=== PATIENT | female | born 1945 | race Caucasian/White ===

== ENCOUNTER 2020-03-11 13:14 | Inpatient (IN) | payer MEDICARE, SELFPAY ==
--- NOTE | ~2020-03-11 | CT_ITS ---
EXAMINATION: CT brain wo con DATE: 03/11/2020 14:27 INDICATION: Headache TECHNIQUE: Computed tomography (CT) of the head was performed without intravenous contrast. The dose- length product was 605.33 mGy-cm. The mA was adjusted according to patient size. Iterative reconstruc tion technique was employed. COMPARISON: CT dated 12/13/2018 FINDINGS: No acute intracranial hemorrhage, infarction, mass or mass effect. No ventriculomegaly or m idline shift. Basilar cisterns are patent. Paranasal sinuses and mastoids are pneumatized. There are scattered mild periventricular and subcortical white matter changes, most likely related to small ves sherrill ischemic disease (microangiopathy). IMPRESSION: 1. No acute intracranial abnormality. Reviewed, dictated and finalized at location A.
--- NOTE | ~2020-03-11 | CT_ITS ---
EXAMINATION: CT abdomen pelvis w con INDICATION: Nausea, poor appetite, abdominal pain TECHNIQUE: Computed tomographic images of the abdomen and pelvis were obtained after the administrati on of 100 cc of Omnipaque 350 intravenous contrast. The dose-length product (DLP) was 470.19 mGy-cm. Automated exposure control and iterative reconstruction technique were employed. COMPARISON: 12/13/2018 FINDINGS: The lung bases are clear. The heart size is normal. There is a small sliding hiatal hernia. An asymmetry is seen in the partially imaged left breast. The liver is diffusely low in attenuation when compared with the spleen, consistent with hepatic steatosis. An unchanged 5 mm cyst is noted in the right hepatic lobe. The spleen, pancreas, gallbladder, and adrenal glands are normal. Hypoattenua ting lesions in the kidneys, measuring up to 3 mm on the right, are too small to characterize but lik yesenia represent cysts. No pathologically enlarged abdominal or pelvic lymph nodes are identified. There is no free intraperitoneal gas or evidence of bowel obstruction. The appendix is normal. There is se felicia lumbar spondylosis. A fat-containing umbilical hernia is noted. There is lumbar levocurvature. IMPRESSION: 1. No CT correlate for the patient's symptoms. 2. Left breast asymmetry. Recommend correlation with mammogram history. If none has been recently per formed, would recommend follow-up with screening mammogram. 3. Diffuse hepatic steatosis. Reviewed, dictated and finalized at location A. IMPRESSION: 1. No CT correlate for the patient's symptoms. 2. Left breast asymmetry. Recommend correlation with mammogram history. If none has been recently performed, would recommend follow-up with screening mammogra m. 3. Diffuse hepatic steatosis.
[2020-03-11 13:32] VITALS: BP 136/68; PULSE 77; RESP 18; TEMP 36.8; O2SAT 97
--- NOTE | 2020-03-11 14:15 | ECG_ITS ---
Measurements Intervals [place] Rate: 68 P: 48 CT: 188 QRS: -22 QRSD: 108 T: 36 QT: 398 QTc: 424 Interpretive Statements SINUS RHYTHM DELAYED PRECORDIAL R/S TRANSITION VOLTAGE CRITERIA FOR LVH BASELINE ARTIFACT- I, II, III, AVR, AVL, AVF BORDERLINE ECG Electronically Signed On 03-11-2020 17:04:38 CDT by Rj Ng D.O.
--- NOTE | 2020-03-11 14:18 | ED.HA ---
HPI - Headache General Chief Complaint: Headache Stated Complaint: weakness, headache, sick to stomach Time Seen by Provider: 03/11/20 14:14 Source: patient Mode of arrival: ambulatory Limitations: no limitations History of Present Illness HPI Narrative: Patient is a 74-year-old female complaining of a headache accompanied by nausea dizziness and loss of appetite x3 weeks. Patient states her headaches generalize 8 out of 10 aching nonradiating. Patient denies any speech or visual disturbance focal weakness or focal numbness, or unsteady gait. Patient denies any neck stiffness or fever. Patient states she has seen a neurologist for it and has an MRI of her head ordered next week. MD elicited complaint: headache Related Data Home Medications Medication Instructions Recorded Confirmed [facility] 05/15/19 alendronate mg PO 05/15/19 aspirin 05/15/19 diclofenac sodium PO 05/15/19 diphenhydramine-acetaminophen 2 tablet PO HS 05/15/19 05/15/19 [Tylenol PM Extra Strength] esomeprazole magnesium mg 05/15/19 galantamine mg PO 05/15/19 levothyroxine 05/15/19 magnesium 200 mg PO DAILY 05/15/19 05/15/19 [id number] acid-lutein [Centrum 1 tablet PO DAILY 05/15/19 05/15/19 Silver] alprazolam 03/11/20 03/11/20 diphenhydramine-acetaminophen 1 tablet PO HS PRN 03/11/20 [Tylenol PM Extra Strength] docusate sodium 100 mg PO DAILY 03/11/20 03/11/20 fluocinonide 1 applic TOPICAL BID 03/11/20 03/11/20 ibuprofen 200 mg PO Q6H PRN 03/11/20 03/11/20 ketoconazole TOPICAL 03/11/20 meclizine 25 mg PO TID 03/11/20 pseudoephedrine HCl [Sudafed] 30 mg PO Q4-6H PRN 03/11/20 03/11/20 Allergies Allergy/AdvReac Type Severity Reaction Status Date / Time cefuroxime Allergy Intermediate Nausea and Verified 03/11/20 13:37 Vomiting Lobster Allergy Intermediate Nausea and Uncoded 03/11/20 13:37 Vomiting Review of Systems Review of Systems: All systems reviewed & are unremarkable except as noted in HPI and below Constitutional: Constitutional: Denies body ache(s), Denies chills, Denies excessive sweating, Denies fatigue, Denies fever(s), Denies lethargy and Denies weight loss Eyes: Eyes: Denies blurry vision, Denies change in vision and Denies loss of vision ENT: Denies ear discharge, Denies headache(s), Denies lip swelling, Denies epistaxis, Denies nasal congestion, Denies neck pain, Denies throat swelling and Denies tongue swelling Cardiovascular: Cardiovascular: Denies chest pain, Denies chest pain at rest, Denies chest pain with activity, Denies diaphoresis, Denies rapid heart rate, Denies edema, Denies irregular heart rhythm, Denies lightheadedness, Denies palpitations, Denies dyspnea and Denies dyspnea on exertion Respiratory: Respiratory: Denies chest congestion, Denies cough, Denies hemoptysis, Denies dyspnea and Denies dyspnea on exertion Gastrointestinal: Gastrointestinal: Denies abdominal pain, Denies melena, Denies hematochezia, Denies diarrhea, Denies vomiting and Denies hematemesis Musculoskeletal: Musculoskeletal: Denies abnormal gait, Denies deformity, Denies joint swelling, Denies limited range of motion, Denies neck pain and Denies numbness Neurologic: Denies Abnormal speech present, Denies abnormal gait, Denies confusion, Denies dizziness, Denies headache(s), Denies focal weakness, Denies loss of vision, Denies numbness, Denies Other visual disturbances, Denies Sensory deficit (Neuro) and Denies weakness Psychiatric: Psychiatric: Denies confusion, Denies depression, Denies auditory hallucinations, Denies homicidal ideation and Denies suicidal ideation Endocrine: Endocrine: Denies cold intolerance, Denies excessive sweating, Denies fatigue, Denies heat intolerance and Denies palpitations Hematologic/Lymphatic: Hematologic/Lymphatic: Denies easy bleeding and Denies easy bruising Allergic/Immunologic: Allergic/Immunologic: Denies lip swelling, Denies throat swelling and Denies tongue swelling PMF Past Medica
--- NOTE | 2020-03-11 14:26 | PC.NURSE ---
Pt taken to [facility]
[2020-03-11] MEDS: diphenhydrAMINE HCl INJ 50 MG/ML VIAL 25 MG IV PUSH (14:39)
[2020-03-11] MEDS: METOCLOPRAMIDE HCL INJ 10 MG/2 ML VIAL IV PUSH (14:40)
[2020-03-11 14:46] LABS: Basophils Percent Auto 0.3 % (0.2-1.2); Eosinophils Percent Auto 0.1 % (0-4.4); Hematocrit 36.3 % (37.0-47.0); Hemoglobin 13.1 g/dL (12.0-15.0); Immature Granulocyte Absolute 0.05 K/mm3 (0.00-0.031); Immature Granulocyte Percent A 0.5 % (0-0.5); Lymphocytes Absolute Auto 0.78 K/mm3 (0.9-3.2); Lymphocytes Percent Auto 8.2 % (18.3-44.2); Mean Corpuscular HGB Conc 36.1 g/dl (32-36); Mean Corpuscular Hemoglobin 31.6 pg (26-34); Mean Corpuscular Volume 87.7 fl (80-100); Mean Platelet Volume 8.8 fl (7.4-10.4); Monocytes Absolute Auto 0.7 K/mm3 (0.1-0.6); Monocytes Percent Auto 7.1 % (2.6-8.5); Neutrophils Percent Auto 83.8 % (45.5-73.1); Platelet Count Result 203 k/mm3 (150-375); Red Blood Count 4.14 M/mm3 (4.2-5.4); White Blood Count 9.5 K/mm3 (4.5-10.0)
[2020-03-11] MEDS: SODIUM CHLORIDE 0.9% IV 1,000 ML 999 ML IV CONT (14:51)
[2020-03-11 14:58] LABS: Alanine Aminotransferase 23 U/L (4-35); Albumin Level 4.5 g/dL (3.5-5.1); Alkaline Phosphatase 58 U/L (38-126); Anion Gap 10 mmol/L (8-16); Aspartate Amino Transferase 27 U/L (14-36); Bilirubin,Total 0.4 mg/dL (0.2-1.3); Blood Urea Nitrogen 11 mg/dL (7-17); Calcium 8.8 mg/dL (8.4-10.2); Carbon Dioxide 30 mmol/L (22-30); Chloride 81 mmol/L (98-107); Estimated CRCL calculation 65 ml/min; Estimated Glomerular Filt Rate > 60; Glucose 135 mg/dL (65-105); Potassium 3.7 mmol/L (3.4-5.0); Sodium 121 mmol/L (137-145)
[2020-03-11 15:10] VITALS: BP 126/87; PULSE 78; RESP 18; O2SAT 100
[2020-03-11 15:22] VITALS: BP 130/72; BP 133/62; PULSE 82; PULSE 84
[2020-03-11 15:23] VITALS: BP 151/77; PULSE 88
[2020-03-11] MEDS: HYDROcodone/acetaminophen (*CRX) 5-325 MG TABLET 1 TAB PO (17:12)
[2020-03-11] MEDS: KETOROLAC 30 MG/ML VIAL (*BKC) IV PUSH (17:13)
--- NOTE | 2020-03-11 18:22 | ADMGEN ---
This patient, Naya Beal, was admitted to [facility] Surg Room 325-01. Patient/family oriented to hospital policies and general routines including ID bracelet, bed and alarms, visiting hours, pain management, procedures, bathroom and other care routines, personal items, smoking policy, room service/diet, and visiting hours. Valuables list has been completed. Information on how to activate the Rapid Response Team has been discussed. Patient/Family are encouraged to report perceived risks to care and to ask questions if they do not understand what they are told or what they should do.
[2020-03-11 18:28] VITALS: BMI 25.1
[2020-03-11 19:07] VITALS: BP 157/71; PULSE 89; RESP 18; TEMP 36.7; O2SAT 98
[2020-03-11] MEDS: SODIUM CHLORIDE 0.9% IV 1,000 ML 90 ML IV CONT (20:45)
[2020-03-11 22:00] VITALS: BP 150/70; PULSE 76; RESP 16; TEMP 36.7; O2SAT 98
--- NOTE | 2020-03-12 00:06 | PM.IMHP ---
H&P: HPI History of Present Illness Date/Time: 03/12/20 00:06 Chief complaint: HYPONATREMIA/HEADACHE Narrative: Naya Beal is a 74 year old female who has been having loss of appetite and dizziness and nausea for the last 3 weeks. The patient denies any fever chills. The patient has been having an unsteady gait and dizziness. She has seen the neurologist and is supposed to have an MRI this next week. The patient is complaining of an 8/10 headache. She denies any visual disturbances or any speech difficulty or any focal weakness or numbness. The patient's sodium was 121 today and her last known sodium was 133. Renal function is within normal limits. Patient is not on any diuretics. And she denies drinking a lot of water. She said her oral intake has been very poor. The patient was started on normal saline. The patient does take any SSRI on a routine basis.Which was read as no acute intracranial abnormality. Date of service 03/12/20 Review of Systems Review of Systems: All systems reviewed & are unremarkable except as noted in HPI and below Constitutional: Constitutional: Reports as per HPI and Reports no additional constitutional complaints Eyes: Eyes: Reports as per HPI and Reports no additional eye complaints ENT: Reports system reviewed and no additional complaints, except as documented and Reports Normal hearing present Cardiovascular: Cardiovascular: Reports no additional cardiovascular complaints Respiratory: Respiratory: Reports no additional respiratory complaints and Reports no additional respiratory complaints Gastrointestinal: Gastrointestinal: Reports as per HPI and Reports no additional gastrointestinal complaints Musculoskeletal: Musculoskeletal: Reports no additional musculoskeletal complaints Integumentary/Breasts: Skin/Breast: Reports system reviewed and no additional complaints, except as docu and Reports as per HPI Neurologic: Reports system reviewed and no additional complaints, except as documented, Reports as per HPI and Reports Normal hearing present Psychiatric: Psychiatric: Reports no additional psychiatric complaints and Reports as per HPI Endocrine: Endocrine: Reports no additional endocrine complaints Hematologic/Lymphatic: Hematologic/Lymphatic: Reports no additional hematologic/lymphatic complaints Allergic/Immunologic: Allergic/Immunologic: Reports no additional allergic/immunologic complaints [facility] Past Medical History Medical History (Updated 03/12/20 @ 00:11 by Mita Robison NP) Anemia Angina at rest Anxiety Arthritis Bronchitis Deficient knowledge of caesarean delivery Fibroids GERD (gastroesophageal reflux disease) Hypothyroidism Osteoporosis Seasonal allergies Sinus problem Surgical History Surgical History (Updated 09/27/20 @ 00:12 by Mita Robison NP) H/O dilation and curettage H/O: hysterectomy History of bladder surgery History of section, classical X2 Hx of tonsillectomy Family History Family History Mother Cancer Father Polio Heart disease Social History Social History (Updated 03/12/20 @ 00:14 by Mita Robison NP) Social History: The patient stated that she never smoked. She does not drink use marijuana or illicit drugs. She lives with her who is a durable power of criminal attorney for healthcare. The patient is a full code. She has 2 children. 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 One of her children as in an accident. Smoking status: Never smoker Second hand tobacco smoke exposure: No Alcohol intake: never Substance use: never Gender identity (if verbalized by the patient): Female Sexual Orientation (if Verbalized by the Patient): Straight or Heterosexual Spiritual care concerns: No Meds Home Medications and Allergies Home Medications Medication Instructions Recorded Confirmed Type alendronate 70 mg
[2020-03-12] MEDS: ONDANSETRON INJ 4 MG/2 ML VIAL IV PUSH (04:52)
[2020-03-12 05:30] VITALS: BP 156/77; PULSE 78; RESP 20; TEMP 36.6; O2SAT 96
[2020-03-12] MEDS: SODIUM CHLORIDE 0.9% IV 1,000 ML 90 ML IV CONT (06:44)
[2020-03-12] MEDS: LEVOTHYROXINE SODIUM 75 MCG TABLET PO (06:45)
[2020-03-12 06:58] LABS: Basophils Percent Auto 0.2 % (0.2-1.2); Eosinophils Percent Auto 0.1 % (0-4.4); Hematocrit 35.5 % (37.0-47.0); Hemoglobin 12.7 g/dL (12.0-15.0); Immature Granulocyte Absolute 0.03 K/mm3 (0.00-0.031); Immature Granulocyte Percent A 0.3 % (0-0.5); Lymphocytes Absolute Auto 1.12 K/mm3 (0.9-3.2); Lymphocytes Percent Auto 11.2 % (18.3-44.2); Mean Corpuscular HGB Conc 35.8 g/dl (32-36); Mean Corpuscular Hemoglobin 30.9 pg (26-34); Mean Corpuscular Volume 86.4 fl (80-100); Mean Platelet Volume 8.4 fl (7.4-10.4); Monocytes Absolute Auto 0.7 K/mm3 (0.1-0.6); Monocytes Percent Auto 6.7 % (2.6-8.5); Neutrophils Absolute Auto 8.2 K/mm3 (1.3-6.7); Neutrophils Percent Auto 81.5 % (45.5-73.1); Platelet Count Result 201 k/mm3 (150-375); Red Blood Count 4.11 M/mm3 (4.2-5.4); Red Cell Distribution Width 11.9 % (11.5-14.5)
[2020-03-12 07:12] LABS: Alanine Aminotransferase 22 U/L (4-35); Albumin Level 4.3 g/dL (3.5-5.1); Alkaline Phosphatase 57 U/L (38-126); Anion Gap 9 mmol/L (8-16); Aspartate Amino Transferase 27 U/L (14-36); Bilirubin,Total 0.4 mg/dL (0.2-1.3); Blood Urea Nitrogen 6 mg/dL (7-17); Calcium 7.9 mg/dL (8.4-10.2); Carbon Dioxide 25 mmol/L (22-30); Chloride 89 mmol/L (98-107); Estimated CRCL calculation 77 ml/min; Estimated Glomerular Filt Rate > 60; Glucose 113 mg/dL (65-105); Magnesium 1.9 mg/dL (1.6-2.3); Potassium 3.5 mmol/L (3.4-5.0); Sodium 123 mmol/L (137-145)
[2020-03-12 08:00] VITALS: PULSE 78; RESP 20; O2SAT 96
[2020-03-12] MEDS: PANTOPRAZOLE SODIUM IV 40 MG VIAL IV PUSH ×2 (08:08→20:30)
[2020-03-12] MEDS: MULTIVITAMINS /C LUTEIN (CENTRUM SILVER) TABLET *BKC 1 TAB PO (08:08)
[2020-03-12] MEDS: SERTRALINE HCL 50 MG TABLET PO (08:08)
[2020-03-12] MEDS: ALPRAZolam (*CRX) 0.5 MG TABLET PO ×3 (08:14→17:33)
[2020-03-12] MEDS: KETOCONAZOLE 2% SHAMPOO 120 ML BOTTLE 1 APPLIC TOPICAL (08:18)
--- NOTE | 2020-03-12 10:20 | PM.IMPN ---
Progress Note: A&P Assessment and Plan (1) Acute hyponatremia: Code(s): E87.1 - Hypo-osmolality and hyponatremia Status: Acute Assessment and Plan: Sodium 121 at presentation and is remaining stable with IV fluids. Most likely etiology is dehydration as patient reports recent nausea and vomiting with poor PO intake. No recent diuretic use. No excess alcohol/beer intake. Denies excess water intake. Urine sodium is 144. She appears euvolemic on exam. Continue gentle IV fluids Hold SSRI Monitor sodium q4h. Nephrology has been consulted and recommendations are appreciated (2) Anxiety: Code(s): F41.9 - Anxiety disorder, unspecified Status: Acute Assessment and Plan: Mood is stable at this time. Continue alprazolam Hold sertraline given hyponatremia (3) Hypothyroidism: Qualifiers: Hypothyroidism type: unspecified Qualified Code(s): E03.9 - Hypothyroidism, unspecified Code(s): E03.9 - Hypothyroidism, unspecified Status: Chronic Assessment and Plan: TSH is within normal limits. Continue levothyroxine. (4) Seasonal allergies: Code(s): J30.2 - Other seasonal allergic rhinitis Status: Chronic Assessment and Plan: Complains of sinus congestion, post-nasal drip, and chest congestion Begin claritin, fluticasone, and mucinex Sudafed has been held. Subjective Date/time seen: 03/12/20 10:20 Interval history: Date of service: 03/12/2020 Naya Beal is a 74 year old female with a history of hypothyroidism, anemia, and seasonal allergies who is seen in follow up for hyponatremia. She complains of sinus pressure and congestion today with associated post-nasal drip causing cough. She also has a headache in the frontal and temporal region which she believes is related to sinus pressure. She complains of feeling dizzy but no worse than how she has been feeling for some time. Denies lightheadedness, weakness, fatigue. No nausea or vomiting. Oral intake has been adequate and she is eating most of her meals. She denies abdominal pain. She had a BM this morning. No dysuria or hematuria. She denies feeling anxious. She has no additional concerns. She does display some confusion throughout the encounter and often repeats herself, but answers all questions appropriately. Review of Systems Review of Systems: Narrative: 12 systems reviewed with pertinent positives and negatives as per HPI. Exam Narrative: Exam Narrative: Ms. Beal is a well nourished 74 year old female who is lying supine in bed. She appears comfortable and is in NARD. HR 78, BP 156/77, RR 20, T 97.8, 96% on room air Neuro: awake, alert and oriented x4, speech clear, no focal neuro deficits noted, some short term memory deficits noted HEENMT: normocephalic, atraumatic, EOMI, sclerae anicteric, moist oral mucosa, tongue midline, nares patent Neck: supple, no lymphadenopathy Respiratory: clear to auscultation bilaterally, nonlabored breathing Cardio: regular rate, regular rhythm with S1-S2 Abdomen: nondistended, normoactive bowel sounds, soft, nontender to palpation, no rigidity or guarding Extremities: no edema, erythema, cyanosis, clubbing, or tenderness to palpation, DP pulses 2+ bilaterally Skin: no rashes or lesions, warm and dry Psych: appropriate mood and affect, judgement and insight fair Objective Data Vital Signs Vital Signs: Vital Signs - 24 hr 03/11/20 13:32 03/11/20 15:10 03/11/20 15:22 Temperature 98.3 F Pulse Rate 77 78 84 Respiratory Rate 18 18 Blood Pressure 136/68 126/87 130/72 Pulse Oximetry 97 100 03/11/20 15:23 03/11/20 19:07 03/11/20 22:00 Temperature 98.0 F 98.1 F Pulse Rate 88 89 76 Respiratory Rate 18 16 Blood Pressure 151/77 H 157/71 H 150/70 H Pulse Oximetry 98 98 03/12/20 05:30 Temperature 97.8 F Pulse Rate 78 Respiratory Rate 20 Blood Pressure 156/77 H Pulse Oximetry 96 Intake/Output
[2020-03-12] MEDS: LORATADINE 5 MG TABLET PO (11:32)
[2020-03-12] MEDS: ACETAMINOPHEN 325 MG TABLET 650 MG PO ×2 (11:35→21:12)
[2020-03-12 12:52] LABS: Sodium 121 mmol/L (137-145)
[2020-03-12 13:35] LABS: Sodium Urine Random 144 meq/L
[2020-03-12 14:00] VITALS: BP 135/70; PULSE 81; RESP 20; TEMP 36.8; O2SAT 92
[2020-03-12 16:20] VITALS: BP 148/69; PULSE 79; RESP 16; TEMP 36.7; O2SAT 99
[2020-03-12 18:22] LABS: Sodium 120 mmol/L (137-145)
[2020-03-12] MEDS: SODIUM CHLORIDE 0.9% IV 1,000 ML 100 ML IV CONT (18:41)
[2020-03-12 19:58] LABS: Sodium 122 mmol/L (137-145)
[2020-03-12] MEDS: FLUTICASONE PROPIONATE 0.05% NA SPR 16 GM BTL (*BKC) 1 SPRAY NASAL (20:28)
[2020-03-12] MEDS: guaiFENesin 12 HR 600 MG TABCR PO (20:28)
[2020-03-12 22:00] VITALS: BP 124/64; PULSE 76; RESP 20; TEMP 37; O2SAT 94
[2020-03-13 00:32] LABS: Sodium 124 mmol/L (137-145)
[2020-03-13] MEDS: SODIUM CHLORIDE 0.9% IV 1,000 ML 100 ML IV CONT ×2 (04:36→19:03)
[2020-03-13] MEDS: LEVOTHYROXINE SODIUM 75 MCG TABLET PO (05:36)
[2020-03-13 06:00] VITALS: BP 143/72; PULSE 75; RESP 18; TEMP 36.4; O2SAT 95
[2020-03-13 06:36] LABS: Hematocrit 35.8 % (37.0-47.0); Hemoglobin 12.5 g/dL (12.0-15.0); Mean Corpuscular HGB Conc 34.9 g/dl (32-36); Mean Corpuscular Hemoglobin 30.6 pg (26-34); Mean Corpuscular Volume 87.7 fl (80-100); Mean Platelet Volume 8.6 fl (7.4-10.4); Platelet Count Result 197 k/mm3 (150-375); Red Blood Count 4.08 M/mm3 (4.2-5.4); White Blood Count 8.3 K/mm3 (4.5-10.0)
[2020-03-13 06:55] LABS: Anion Gap 10 mmol/L (8-16); Blood Urea Nitrogen 3 mg/dL (7-17); Calcium 8.3 mg/dL (8.4-10.2); Carbon Dioxide 28 mmol/L (22-30); Chloride 90 mmol/L (98-107); Estimated CRCL calculation 77 ml/min; Estimated Glomerular Filt Rate > 60; Glucose 100 mg/dL (65-105); Potassium 3.2 mmol/L (3.4-5.0); Sodium 128 mmol/L (137-145)
[2020-03-13] MEDS: ALPRAZolam (*CRX) 0.5 MG TABLET PO ×2 (08:40→17:01)
[2020-03-13] MEDS: KETOCONAZOLE 2% SHAMPOO 120 ML BOTTLE 1 APPLIC TOPICAL (08:41)
[2020-03-13] MEDS: LORATADINE 5 MG TABLET PO (08:41)
[2020-03-13] MEDS: PANTOPRAZOLE SODIUM IV 40 MG VIAL IV PUSH ×2 (08:41→21:10)
[2020-03-13] MEDS: guaiFENesin 12 HR 600 MG TABCR PO ×2 (08:41→21:10)
[2020-03-13] MEDS: MULTIVITAMINS /C LUTEIN (CENTRUM SILVER) TABLET *BKC 1 TAB PO (08:41)
[2020-03-13] MEDS: FLUTICASONE PROPIONATE 0.05% NA SPR 16 GM BTL (*BKC) 1 SPRAY NASAL ×2 (08:41→21:09)
[2020-03-13] MEDS: POTASSIUM CHLORIDE 20 MEQ TABLET 40 MEQ PO (09:29)
[2020-03-13 10:31] LABS: Sodium 125 mmol/L (137-145)
[2020-03-13 14:00] VITALS: BP 135/78; PULSE 76; RESP 18; TEMP 36.9; O2SAT 99
[2020-03-13 14:20] LABS: Sodium 123 mmol/L (137-145)
--- NOTE | 2020-03-13 16:32 | PM.IMPN ---
Progress Note: A&P Assessment and Plan (1) Acute hyponatremia: Code(s): E87.1 - Hypo-osmolality and hyponatremia Status: Acute Assessment and Plan: Sodium 121 at presentation and is remaining stable with IV fluids. Most likely etiology is dehydration as patient reports recent nausea and vomiting with poor PO intake. No recent diuretic use. No excess alcohol/beer intake. Denies excess water intake. Urine sodium is 144. She appears euvolemic on exam. Continue gentle IV fluids as this appears to be slowly improving sodium levels Hold SSRI Continue to monitor sodium q4h. Nephrology has been consulted and recommendations are appreciated Hopeful discharge tomorrow if continued improvement. (2) Anxiety: Code(s): F41.9 - Anxiety disorder, unspecified Status: Acute Assessment and Plan: Mood is stable at this time. Continue alprazolam Hold sertraline given hyponatremia Her has been given permission to stay with her tonight to help keep her oriented and calm. (3) Hypothyroidism: Qualifiers: Hypothyroidism type: unspecified Qualified Code(s): E03.9 - Hypothyroidism, unspecified Code(s): E03.9 - Hypothyroidism, unspecified Status: Chronic Assessment and Plan: TSH is within normal limits. Continue levothyroxine. (4) Seasonal allergies: Code(s): J30.2 - Other seasonal allergic rhinitis Status: Chronic Assessment and Plan: Complains of sinus congestion, post-nasal drip, and chest congestion. Improved today. Continue claritin, fluticasone, and mucinex Sudafed has been held. (5) Chest pain: Qualifiers: Chest pain type: unspecified Qualified Code(s): R07.9 - Chest pain, unspecified Code(s): R07.9 - Chest pain, unspecified Status: Acute Assessment and Plan: On 03/12, she had an episode of midsternal chest discomfort lasting approximately 20 minutes which occurred while at rest. She had difficulty describing her symptoms but felt it was similar to a tightness that radiated towards the left anterior chest wall. She denied jaw pain, arm pain, back pain. No diaphoresis. No shortness of breath or palpitations. No GERD symptoms. She reports she has never had an episode similar to this before. She denies any cardiac history or history of angina. Upon further questioning, she feels quite anxious overall and believes that her anxiety may be contributing to her chest pain. Her pain is reproducible with palpation of chest wall. EKG was performed with no changes compared to initial; do not suspect ischemia or ACS. She denies any additional episodes of chest pain today. Administer anxiolytic and analgesics as needed Monitor for any additional symptoms Subjective Date/time seen: 03/13/20 16:32 Interval history: Date of service: 03/13/2020 Naya Beal is a 74 year old female with a history of hypothyroidism, anemia, and seasonal allergies who is seen in follow up for hyponatremia. She became confused last night and was getting up from bed and pulling out her IV. Her would like to stay with her tonight to help keep her oriented and calm. She is feeling well today and anxious for discharge. She has mild headache that has improved. No dizziness, lightheadedness, weakness, fatigue, body aches, cramps, nausea, vomiting, fevers, or chills. Review of Systems Review of Systems: Narrative: 12 systems reviewed with pertinent positives and negatives as per HPI. Exam Narrative: Exam Narrative: Ms. Beal is a well nourished 74 year old female who is lying supine in bed. She appears comfortable and is in NARD. HR 75, BP 143/72, RR 18, T 97.6, 95% on room air Neuro: awake, alert and oriented x4, speech clear, no focal neuro deficits noted, some short term memory deficits noted HEENMT: normocephalic, atraumatic, EOMI, sclerae anicteric, moist oral mucosa, tongue midline, nares paten
--- NOTE | 2020-03-13 16:46 | ECG_ITS ---
Measurements Intervals [place] Rate: 76 P: 37 [place]: 181 QRS: -23 QRSD: 104 T: 36 QT: 365 QTc: 412 Interpretive Statements SINUS RHYTHM VOLTAGE CRITERIA FOR LVH BORDERLINE R WAVE PROGRESSION, ANTERIOR LEADS BASELINE WANDER- I, II BORDERLINE ECG Electronically Signed On 03-13-2020 14:27:29 CDT by Rj Ng D.O.
[2020-03-13 18:40] LABS: Sodium 124 mmol/L (137-145)
[2020-03-13] MEDS: ACETAMINOPHEN 325 MG TABLET 650 MG PO (21:24)
[2020-03-13 22:00] VITALS: BP 140/70; PULSE 84; RESP 18; TEMP 36.9; O2SAT 94
[2020-03-13 23:25] LABS: Sodium 126 mmol/L (137-145)
[2020-03-14] MEDS: SODIUM CHLORIDE 0.9% IV 1,000 ML 100 ML IV CONT (02:43)
[2020-03-14 06:00] VITALS: BP 132/75; PULSE 70; RESP 18; TEMP 36.8; O2SAT 97
[2020-03-14] MEDS: LEVOTHYROXINE SODIUM 75 MCG TABLET PO (06:36)
[2020-03-14 06:38] LABS: Basophils Absolute Auto 0.1 K/mm3 (0.0-0.1); Basophils Percent Auto 0.8 % (0.2-1.2); Eosinophils Absolute Auto 0.1 K/mm3 (0-0.3); Eosinophils Percent Auto 0.9 % (0-4.4); Hematocrit 35.7 % (37.0-47.0); Hemoglobin 12.5 g/dL (12.0-15.0); Immature Granulocyte Absolute 0.05 K/mm3 (0.00-0.031); Immature Granulocyte Percent A 0.6 % (0-0.5); Lymphocytes Absolute Auto 2.02 K/mm3 (0.9-3.2); Lymphocytes Percent Auto 25.4 % (18.3-44.2); Mean Corpuscular Hemoglobin 30.6 pg (26-34); Mean Corpuscular Volume 87.3 fl (80-100); Mean Platelet Volume 8.6 fl (7.4-10.4); Monocytes Absolute Auto 0.8 K/mm3 (0.1-0.6); Monocytes Percent Auto 9.4 % (2.6-8.5); Neutrophils Percent Auto 62.9 % (45.5-73.1); Platelet Count Result 234 k/mm3 (150-375); Red Blood Count 4.09 M/mm3 (4.2-5.4)
[2020-03-14 06:54] LABS: Alanine Aminotransferase 27 U/L (4-35); Albumin Level 4.3 g/dL (3.5-5.1); Alkaline Phosphatase 57 U/L (38-126); Anion Gap 9 mmol/L (8-16); Aspartate Amino Transferase 30 U/L (14-36); Bilirubin,Total 0.5 mg/dL (0.2-1.3); Blood Urea Nitrogen 4 mg/dL (7-17); Calcium 8.5 mg/dL (8.4-10.2); Carbon Dioxide 25 mmol/L (22-30); Chloride 99 mmol/L (98-107); Estimated CRCL calculation 65 ml/min; Estimated Glomerular Filt Rate > 60; Glucose 102 mg/dL (65-105); Potassium 3.5 mmol/L (3.4-5.0); Sodium 133 mmol/L (137-145)
[2020-03-14] MEDS: FLUTICASONE PROPIONATE 0.05% NA SPR 16 GM BTL (*BKC) 1 SPRAY NASAL (08:21)
[2020-03-14] MEDS: guaiFENesin 12 HR 600 MG TABCR PO (08:21)
[2020-03-14] MEDS: LORATADINE 5 MG TABLET PO (08:21)
[2020-03-14] MEDS: ALPRAZolam (*CRX) 0.5 MG TABLET PO (08:21)
[2020-03-14] MEDS: MULTIVITAMINS /C LUTEIN (CENTRUM SILVER) TABLET *BKC 1 TAB PO (08:21)
[2020-03-14] MEDS: PANTOPRAZOLE SODIUM IV 40 MG VIAL IV PUSH (08:22)
[2020-03-14] MEDS: ACETAMINOPHEN 325 MG TABLET 650 MG PO (08:28)
--- NOTE | 2020-03-14 10:09 | PM.DS ---
DS: Admitting Diagnosis Admitting Diagnosis Admitting Diagnosis: HYPONATREMIA/HEADACHE DS: Discharge Diagnosis Discharge Diagnosis (1) Acute hyponatremia: Code(s): E87.1 - Hypo-osmolality and hyponatremia Status: Acute Assessment and Plan: Sodium 121 at presentation. Suspect acute hyponatremia is secondary to dehydration. Patient reported poor PO intake secondary to nausea and vomiting. She is not on diuretics. No excess alcohol/beer intake. No excess water intake/water intoxication. She remained asymptomatic. Sodium steadily improved with gentle IV normal saline and was 133 at time of discharge. SSRI resumed as hyponatremia was felt to be secondary to dehydration and not related to medication. She will need to repeat sodium in 1 week and follow up with PCP. We discussed adequate hydration. (2) Anxiety: Code(s): F41.9 - Anxiety disorder, unspecified Status: Acute Assessment and Plan: Sertraline was held initially but resumed as above. She did feel anxious about being hospitalized which worsened in the absence of her . He was given permission to stay with her overnight in order to keep her oriented and calm. Continue alprazolam and sertraline. (3) Hypothyroidism: Qualifiers: Hypothyroidism type: unspecified Qualified Code(s): E03.9 - Hypothyroidism, unspecified Code(s): E03.9 - Hypothyroidism, unspecified Status: Chronic Assessment and Plan: TSH is within normal limits. Continue levothyroxine. (4) Seasonal allergies: Code(s): J30.2 - Other seasonal allergic rhinitis Status: Chronic Assessment and Plan: Complained of sinus congestion, post-nasal drip, and chest congestion. Sudafed was discontinued as it may be contributing to her headaches. Started on claritin daily. (5) Chest pain: Qualifiers: Chest pain type: unspecified Qualified Code(s): R07.9 - Chest pain, unspecified Code(s): R07.9 - Chest pain, unspecified Status: Acute Assessment and Plan: On 03/12, she had an episode of midsternal chest discomfort lasting approximately 20 minutes which occurred while at rest. She had difficulty describing her symptoms but felt it was similar to a tightness that radiated towards the left anterior chest wall. She denied jaw pain, arm pain, back pain, diaphoresis, shortness of breath, palpitations, or GERD symptoms. She reports she has never had an episode similar to this before. She denied any cardiac history or history of angina. Upon further questioning, she felt quite anxious overall and believed that her anxiety may be contributing to her chest pain. Her pain was reproducible with palpation of chest wall. EKG was performed with no changes compared to initial; do not suspect ischemia or ACS. She denied any additional episodes of chest pain. (6) Headache: Qualifiers: Headache chronicity pattern: acute headache Headache type: unspecified Intractability: not intractable Qualified Code(s): R51 - Headache Code(s): R51 - Headache Status: Acute Assessment and Plan: She has been having frequent frontal-temporal headaches. She has been evaluated by PCP and has plans for MRI on 03/16/20. She denied head injury. Not accompanied by concerning signs including visual changes, speech changes, gait changes, waking up with pain, neck pain, or fevers. Follow up with PCP. DS: Summary Hospital Course Hospital Course: Date of admission: 03/11/2020 Date of discharge: 03/14/2020 Naya Beal is a 74 year old female with a history of anxiety, anemia, hypothryoidism, and seasonal allergies who presented to the emergency department on 03/11/2020 with complaints of headache, nausea, and poor oral intake. At presentation, VSS, WBC 9.5, sodium 121, potassium 3.7, chloride 81, CO2 30, BUN 11, and Cr 0.6, head CT showing no acute abnormalities, and CT a/p with no CT correlate fo symptoms. She
[2020-03-16 04:58] LABS: Osmolality, Urine 409 mOsm/kg (50-1200)
== END 2020-03-14 10:31 | disposition home or self-care (01) | DRG 641 ==
LOC: ANHED 17:15 → ANH3MEDSUR 17:41
PROVIDERS: Nurse Practitioner; Admitting Provider Internal Medicine; Emergency Provider Emergency Medicine; PCP Family Medicine Adolescent Medicine; Visit Provider Physician Assistant
DX: E87.1 Hypo-osmolality and hyponatremia (principal); E86.0 Dehydration; F41.9 Anxiety disorder, unspecified; E03.9 Hypothyroidism, unspecified; J30.2 Other seasonal allergic rhinitis; R07.9 Chest pain, unspecified; R51 Headache; D64.9 Anemia, unspecified; M19.90 Unspecified osteoarthritis, unspecified site; K21.9 Gastro-esophageal reflux disease without esophagitis; M81.0 Age-related osteoporosis without current pathological fracture; Z90.710 Acquired absence of both cervix and uterus
CPT/HCPCS: 36415; 70450; 74177; 80048; 80053; 83735; 83935; 84295; 84300; 84443; 85025; 85027; 93005; 96361; 96374; 96375; 99285; A9270; C9113; G0378; J1200; J1885; J2405; J2765; J7030; Q9967

== ENCOUNTER → 2020-03-16 10:59 | Outpatient (CLI) | payer MEDICARE, SELFPAY ==
--- NOTE | ~2020-03-16 | MR_ITS ---
EXAMINATION: MR brain/brain stem wo con DATE: 03/16/2020 11:51 INDICATION: Frontal headache. Worsening dementia. TECHNIQUE: Magnetic resonance imaging (MRI) of the brain and brainstem was performed without intraven ous contrast. Sequences included sagittal and axial T1-weighted FSE, axial diffusion-weighted FS EPI, axial T2*-weighted GRE, axial T2-weighted FLAIR Propeller, and axial T2-weighted Propeller. Apparent diffusion coefficient (ADC) maps were created. COMPARISON: Brain MRI 11/19/2017, head CT 03/11/2020 FINDINGS: There are scattered areas of nonspecific increased T2-weighted signal intensity in the cere bral white matter. There is no intracranial hemorrhage, acute infarction, or abnormal intracranial ma ss lesion. The ventricles are normal in size. The paranasal sinuses are clear. The orbits are normal. There are trace bilateral mastoid effusions. IMPRESSION: 1. Stable mild nonspecific cerebral white matter disease, which likely represents chronic small vesse l ischemic disease. Reviewed, dictated and finalized at location A. IMPRESSION: 1. Stable mild nonspecific cerebral white matter disease, which likely represen ts chronic small vessel ischemic disease.
== END ==
PROVIDERS: PCP Family Medicine Adolescent Medicine; Visit Provider Family Medicine Adolescent Medicine
DX: R41.3 Other amnesia (principal); R93.0 Abnormal findings on diagnostic imaging of skull and head, not elsewhere classified
CPT/HCPCS: 70551

== ENCOUNTER 2021-02-12 01:30 | Day surgery (SDC) | payer MEDICARE, SELFPAY ==
[2021-02-01 13:35] VITALS: BMI 26.6
--- NOTE | 2021-02-12 08:19 | WPDANESEPPF ---
Anes - Initial Pre Proc Eval Procedure: Operation Date: 02/12/21 11:30 Proposed Procedures p Colonoscopy - Forrest Napier MD Date/Time: 02/12/21 08:19 Surgeon: Forrest Napier MD Pre Op Diagnosis: occult GI bleed R19.5 Patient Data Age: 75 Gender: F Height: 1.68 m Weight: 75 kg Allergies Allergy/AdvReac Type Severity Reaction Status Date / Time cefuroxime Allergy Intermediate Nausea and Verified 02/12/21 11:09 Vomiting Lobster Allergy Intermediate Nausea and Uncoded 02/12/21 11:09 Vomiting Home Medications Medication Instructions Recorded Confirmed Type Centrum Silver 1 tablet PO DAILY 05/15/19 02/12/21 History aspirin 81 mg PO DAILY 05/15/19 02/12/21 History diphenhydramine-acetaminophen 2 tablet PO HS 05/15/19 02/12/21 History [Tylenol PM Extra Strength] esomeprazole magnesium 40 mg PO DAILY 05/15/19 02/12/21 History galantamine 16 mg PO DAILY 05/15/19 02/12/21 History levothyroxine 75 mcg PO DAILY 05/15/19 02/12/21 History alprazolam 0.5 mg PO BID PRN 03/11/20 02/12/21 History docusate sodium 100 mg PO DAILY 03/11/20 02/12/21 History acetaminophen [Acetaminophen Extra 1,000 mg PO DAILY 02/01/21 02/12/21 History Strength] ksdtxibtvj-odicuxxedwuti-gonh 1 tablet PO DAILY 02/01/21 02/12/21 History gabapentin 300 mg PO BID 02/01/21 02/12/21 History ibuprofen 400 mg PO DAILY PRN 02/01/21 02/12/21 History memantine 10 mg PO BID 02/01/21 02/12/21 History propranolol 80 mg PO DAILY 02/01/21 02/12/21 History Patient hx anesthesia problems: none Family hx anesthesia problems: none PMFSH Past Medical History Medical History (Updated 02/12/21 @ 08:20 by Erickson Marroquin DO) Anemia Angina at rest Anxiety Arthritis Bronchitis Deficient knowledge of caesarean delivery Dementia early stages Fibroids GERD (gastroesophageal reflux disease) Hypothyroidism Osteoporosis Seasonal allergies Sinus problem Surgical History Surgical History (Updated 03/12/20 @ 00:12 by Mita Robison NP) H/O dilation and curettage H/O: hysterectomy History of bladder surgery History of section, classical X2 Hx of tonsillectomy Family History Family History Mother Cancer Father Polio Heart disease Social History Social History (Updated 03/12/20 @ 00:14 by Mita Robison NP) Social History: The patient stated that she never smoked. She does not drink use marijuana or illicit drugs. She lives with her who is a durable power of civil rights attorney for healthcare. The patient is a full code. She has 2 children. 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 One of her children as in an accident. Smoking status: Never smoker Second hand tobacco smoke exposure: No Alcohol intake: current Alcohol use details: seldom Substance use: never Living arrangements: with family Gender identity (if verbalized by the patient): Female Sexual Orientation (if Verbalized by the Patient): Straight or Heterosexual Spiritual care concerns: No Anes - Eval Final PreProcedure Day of Procedure 02/12/21 08:19 Patient weight: overweight Heart: regular rate and rhythm Lungs: clear to auscultation and normal air movement Airway: Mallampati scale class II Neurological: alert and oriented Last oral intake: >/= 8 hours ASA classification: III Emergent: no Anesthetic plan: proceed Anesthesia type and monitoring: general GIVS and standard monitoring Informed Consent: The patient's anesthetic plan and its attendant risks and benefits were discussed with the patient/family/POA. Questions were solicited and answers provided to the satisfaction of the patient/family/POA.
[2021-02-12 11:17] VITALS: BP 110/67; PULSE 55; RESP 16; TEMP 36.9; O2SAT 98; BMI 26.5
[2021-02-12] MEDS: LACTATED RINGERS 1,000 ML 150 ML IV CONT (11:29)
--- NOTE | 2021-02-12 12:04 | PM.HPGS ---
History of Present Illness History of Present Illness Consent: Risks, benefits, and alternatives have been discussed and questions answered. Patient agrees to proceed with procedure. Chief complaint: occult GI bleed R19.5 Narrative: Naya Beal is a 75 year old female with last colonoscopy 2007, had recent FIT + Review of Systems Constitutional: Constitutional: Denies headache(s) and Denies weakness Eyes: Eyes: Denies blurry vision ENT: Reports Normal hearing present, Denies headache(s) and Denies neck pain Cardiovascular: Cardiovascular: Denies chest pain and Denies dyspnea Respiratory: Respiratory: Denies dyspnea Gastrointestinal: Gastrointestinal: Reports no additional gastrointestinal complaints Genitourinary: Genitourinary: Denies dysuria Musculoskeletal: Musculoskeletal: Denies neck pain Integumentary/Breasts: Skin/Breast: Denies dry skin Neurologic: Reports Normal hearing present, Denies headache(s) and Denies weakness Psychiatric: Psychiatric: Denies anxiety Endocrine: Endocrine: Denies change in body appearance Hematologic/Lymphatic: Hematologic/Lymphatic: Denies easy bleeding Allergic/Immunologic: Allergic/Immunologic: Denies urticaria PMFSH Past Medical History Medical History (Updated 02/12/21 @ 12:04 by Forrest Napier MD) Anemia Angina at rest Anxiety Arthritis Bronchitis Deficient knowledge of caesarean delivery Dementia early stages Fibroids GERD (gastroesophageal reflux disease) Hypothyroidism Osteoporosis Positive FIT (fecal immunochemical test) Seasonal allergies Sinus problem Surgical History Surgical History (Updated 03/12/20 @ 00:12 by Mita Robison NP) H/O dilation and curettage H/O: hysterectomy History of bladder surgery History of section, classical X2 Hx of tonsillectomy Family History Family History Mother Cancer Father Polio Heart disease Social History Social History (Updated 03/12/20 @ 00:14 by Mita Robison NP) Social History: The patient stated that she never smoked. She does not drink use marijuana or illicit drugs. She lives with her who is a durable power of county attorney for healthcare. The patient is a full code. She has 2 children. 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 One of her children as in an accident. Smoking status: Never smoker Second hand tobacco smoke exposure: No Alcohol intake: current Alcohol use details: seldom Substance use: never Living arrangements: with family Gender identity (if verbalized by the patient): Female Sexual Orientation (if Verbalized by the Patient): Straight or Heterosexual Spiritual care concerns: No Meds Home Medications and Allergies Home Medications Medication Instructions Recorded Confirmed Type Centrum Silver 1 tablet PO DAILY 05/15/19 02/12/21 History aspirin 81 mg PO DAILY 05/15/19 02/12/21 History diphenhydramine-acetaminophen 2 tablet PO HS 05/15/19 02/12/21 History [Tylenol PM Extra Strength] esomeprazole magnesium 40 mg PO DAILY 05/15/19 02/12/21 History galantamine 16 mg PO DAILY 05/15/19 02/12/21 History levothyroxine 75 mcg PO DAILY 05/15/19 02/12/21 History alprazolam 0.5 mg PO BID PRN 03/11/20 02/12/21 History docusate sodium 100 mg PO DAILY 03/11/20 02/12/21 History acetaminophen [Acetaminophen Extra 1,000 mg PO DAILY 02/01/21 02/12/21 History Strength] nilivewjkp-fspduohnlzgid-rsly 1 tablet PO DAILY 02/01/21 02/12/21 History gabapentin 300 mg PO BID 02/01/21 02/12/21 History ibuprofen 400 mg PO DAILY PRN 02/01/21 02/12/21 History memantine 10 mg PO BID 02/01/21 02/12/21 History propranolol 80 mg PO DAILY 02/01/21 02/12/21 History Allergies Allergy/AdvReac Type Severity Reaction Status Date / Time cefuroxime Allergy Intermediate Nausea and Verified 02/12/21 11:09 Vomiting Lobster Allergy Intermediate Nausea and
[2021-02-12 12:25] VITALS: BP 106/54; PULSE 61; RESP 21; O2SAT 100
[2021-02-12 12:35] VITALS: BP 106/58; PULSE 61; RESP 22; O2SAT 95
[2021-02-12 12:45] VITALS: BP 119/61; PULSE 59; RESP 19; O2SAT 92
== END 2021-02-12 13:10 | disposition home or self-care (01) ==
PROVIDERS: PCP Family Medicine Adolescent Medicine; Visit Provider Internal Medicine Gastroenterology
PROC: 0DJD8ZZ Inspection of Lower Intestinal Tract, Via Natural or Artificial Opening Endoscopic (ICD-10-PCS; CPT 45378; principal; 2021-02-12 11:30)
DX: R19.5 Other fecal abnormalities (principal); K64.8 Other hemorrhoids; D12.0 Benign neoplasm of cecum; D12.4 Benign neoplasm of descending colon; D64.9 Anemia, unspecified; F41.9 Anxiety disorder, unspecified; M19.90 Unspecified osteoarthritis, unspecified site; K21.9 Gastro-esophageal reflux disease without esophagitis; E03.9 Hypothyroidism, unspecified; M81.0 Age-related osteoporosis without current pathological fracture; Z79.82 Long term (current) use of aspirin
CPT/HCPCS: 45385; 88305; J2704; J7120

== ENCOUNTER → 2021-09-25 11:53 | Outpatient (CLI) | payer MEDICARE, SELFPAY ==
--- NOTE | ~2021-09-25 | XR_ITS ---
EXAMINATION: XR chest 2V Exam Date/Time: 09/25/2021 12:05 CDT CLINICAL HISTORY: R06.00 - Dyspnea, unspecified Comparison: 05/15/2019. RESULT: Lines, tubes, and devices: None. Lungs and pleura: Clear. Cardiomediastinal silhouette: Stable cardiomediastinal silhouette. Other: No acute osseous or upper abdominal finding. IMPRESSION: No acute cardiopulmonary process Reviewed, dictated and finalized at location K.
== END ==
PROVIDERS: Visit Provider Family Medicine Adolescent Medicine
DX: R06.00 Dyspnea, unspecified (principal)
CPT/HCPCS: 71046

== ENCOUNTER → 2021-11-30 08:37 | Outpatient (CLI) | payer MEDICARE, SELFPAY ==
--- NOTE | ~2021-11-30 | XR_ITS ---
EXAMINATION: XR cervical spine 4-5V DATE: 11/30/2021 08:59 INDICATION: Headache. TECHNIQUE: 4 views of cervical spine were obtained. COMPARISON: None. FINDINGS: There is kyphosis of upper cervical spine. Vertebral body heights are normal. There is misha rely decreased disc height from C4-C5 through C6-C7 with endplate remodeling. There is multilevel unc overtebral joint osteoarthritis, severe bilaterally from C4-C5 through C6-C7. There is multilevel mil d to moderate facet joint osteoarthritis. There is mild central canal stenosis at C3-C4, C4-C5, C5-C6 , and C6-C7. No prevertebral soft tissue swelling. IMPRESSION: 1. Severe cervical spondylosis. Reviewed, dictated and finalized at location D.
== END ==
PROVIDERS: PCP Family Medicine Adolescent Medicine; Visit Provider Family Medicine Adolescent Medicine
DX: R51.9 Headache, unspecified (principal); M47.892 Other spondylosis, cervical region
CPT/HCPCS: 72050

== ENCOUNTER 2023-01-16 07:00 | Observation (INO) | payer MEDICARE, SELFPAY ==
[2023-01-16] VITALS (26 sets, daily range): BP systolic 143–193; BP diastolic 71–95; PULSE 60–82; RESP 13–21; TEMP 36.5–37.3; O2SAT 94–100
--- NOTE | 2023-01-16 | ECHO_ITS ---
Patient Info Name: Naya Beal Age: 77 years : 1945 Gender: Female Ht: 66 in Wt: 171 lbs BSA: 1.92 m2 HR: 78 bpm BP: 143 / 73 mmHg Heart Rhythm: Sinus Rhythm Technical Quality: Poor Exam Date: 01/16/2023 4:16 PM Exam Location: [facility] Room: 347 Patient Status: Inpatient Admit Date: 01/16/2023 Staff Ordering Physician: Itzel Salcedo Medical Research Associate: Nery Barrera RDCS Attending Provider: Soraida Gleason MD Referring Physician: Denisse BRAVO; Exam Type: CA echo dop color flow w con Study Info Indications - chest pain Complete two-dimensional, color flow and Doppler transthoracic echocardiogram is performed with contrast to opacify the left ventricle and to improve the deliniation of the left ventricle endocardial borders. Contrast/Agitated Saline Contrast/Ag. Saline: Definity Amount: 1.00 ml Administered By: Nery Barrera [facility] Existing IV Access: Yes Reason for Poor Study: patient body habitus Summary 1. Normal left ventricular size. Sigmoid septum. Good systolic function of all segments with ejection fraction greater than 70%. Grade 1 diastolic dysfunction noted. 2. Left atrial chamber dimension is mildly enlarged. 3. No pulmonary hypertension, estimated pulmonary arterial systolic pressure is 28 mmHg. 4. No significant valve disease. 5. Normal sinus rhythm. 6. Technically difficult study, definity echo contrast used. Left Ventricle Left ventricular chamber dimension is normal. Left ventricular systolic function is normal, estimated at >70%. There is no increased left ventricular wall thickness. Left ventricular septal wall motion is normal. The left ventricular diastolic function is grade I diastolic dysfunction. Right Ventricle Right ventricular chamber dimension is normal. Right ventricular systolic function is normal. Left Atria Left atrial chamber dimension is mildly enlarged. Right Atria Right atrial chamber dimension is normal. Aortic Valve The aortic valve is trileaflet. There is no aortic valve sclerosis. There is no aortic valve stenosis. There is no aortic valve regurgitation. Pulmonic Valve The pulmonic valve is normal. There is no pulmonic valve stenosis. There is trace pulmonic regurgitation. Mitral Valve The mitral valve has normal leaflets. There is no mitral valve stenosis. There is no mitral valve regurgitation. Tricuspid Valve The tricuspid valve leaflets are normal. There is no significant tricuspid valve stenosis. There is trace tricuspid valve regurgitation. No pulmonary hypertension, estimated pulmonary arterial systolic pressure is 28 mmHg. Pericardium/Pleural The pericardium appears normal. There is no pericardial effusion. Inferior Vena Cava Normal inferior vena cava with >50% collapse upon inspiration consistent with Empty right atrial pressure, 10 mmHg. Aorta The aortic root size at the sinus of Valsalva is normal. The prox ascending aorta size is normal. Left Ventricular Outflow Tract Name Value Normal LVOT 2D LVOT Diameter 2.03 cm LVOT Doppler LVOT Peak Gradient 5 mmHg LVOT Mean Gradient 3 m
--- NOTE | ~2023-01-16 | XR_ITS ---
Clinical Indication: Chest pain AP and lateral views of the chest: Comparison: 09/25/2021 Findings: The lungs are clear, without evidence of focal consolidation or pleural effusion. Cardiome diastinal silhouette is within normal limits. Bones and soft tissues are unremarkable. Impression: Normal chest. Reviewed, dictated and finalized at location . Impression: Normal chest.
--- NOTE | ~2023-01-16 | CT_ITS ---
EXAMINATION: CT abdomen pelvis w con DATE: 01/17/2023 08:29 INDICATION: Epigastric discomfort. TECHNIQUE: Computed tomography (CT) of the abdomen and pelvis was performed with 100 mL Omnipaque 350 intravenous contrast. Automated exposure control and iterative reconstruction technique were employe d. The dose-length product was 745.38 mGy-cm. COMPARISON: CT abdomen and pelvis 03/12/2020 FINDINGS: The visualized portions of the lung bases demonstrate mild atelectasis. A calcified right l marcus nodule and calcified right hilar lymph nodes are consistent with old granulomatous disease. No pl eural effusion. The heart size is normal. There are coronary artery calcifications. No pericardial ef fusion. There is a small sliding hiatal hernia. There is a 6 mm cyst in the liver. There is a gallsto ne in the gallbladder, which is normal in size. Calcifications in the spleen are consistent with old granulomatous disease. The pancreas, adrenal glands, and left kidney are normal. There is a 5 mm cyst in right kidney. There are no dilated loops of bowel. The appendix is normal. There is an umbilical hernia containing fat. There are no pathologically enlarged lymph nodes. There is no free intraperito brina fluid. There is gas in the bladder lumen, likely from recent instrumentation. There is lumbar le voscoliosis and severe spondylosis. IMPRESSION: 1. Small sliding hiatal hernia. Reviewed, dictated and finalized at location B.
--- NOTE | ~2023-01-16 | US_ITS ---
EXAMINATION: US abdomen limited DATE: 01/17/2023 08:59 INDICATION: Epigastric abdominal pain. TECHNIQUE: Multiple grayscale and Doppler ultrasound images of the abdomen were obtained. COMPARISON: CT abdomen and pelvis 01/17/2023 FINDINGS: The visualized portions of the head and body of the pancreas are normal. There is diffuse h epatic steatosis. There is normal flow in main portal vein. The gallbladder is normal in size. No vis ible gallstones. There is a 6 mm polyp in the gallbladder, likely a benign cholesterol polyp needing no follow-up. No gallbladder wall thickening or sonographic Domínguez sign. The common duct is normal an d measures 4 mm. IMPRESSION: 1. Diffuse hepatic steatosis. Reviewed, dictated and finalized at location B.
--- NOTE | 2023-01-16 07:01 | ECG_ITS ---
Measurements Intervals [place] Rate: 78 P: 42 OR: 179 QRS: -32 QRSD: 95 T: 31 QT: 364 QTc: 415 Interpretive Statements SINUS RHYTHM MARKED LEFT AXIS DEVIATION [QRS AXIS < -30] VOLTAGE CRITERIA FOR LVH [MEETS CRITERIA IN ONE OF: R(aVL), S(V1), R(V5), R(V5/V6)+S(V1)] COMPARED TO ECG 03/13/2020 13:38:11 LEFT-AXIS DEVIATION NOW PRESENT Electronically Signed On 01-16-2023 10:18:48 CDT by Marie Horton M.D.
--- NOTE | 2023-01-16 07:11 | PC.NURSE ---
Patient report received from MATT Shen. All questions answered and care of patient assumed.
[2023-01-16 07:47] LABS: Basophils Absolute Auto 0.1 K/mm3 (0.0-0.1); Basophils Percent Auto 1.2 % (0.2-1.2); Eosinophils Absolute Auto 0.1 K/mm3 (0-0.3); Eosinophils Percent Auto 1.2 % (0-4.4); Hematocrit 41.5 % (37.0-47.0); Hemoglobin 13.6 g/dL (12.0-15.0); Immature Granulocyte Absolute 0.01 K/mm3 (0.00-0.031); Immature Granulocyte Percent A 0.2 % (0-0.5); Lymphocytes Absolute Auto 1.19 K/mm3 (0.9-3.2); Lymphocytes Percent Auto 23.2 % (18.3-44.2); Mean Corpuscular HGB Conc 32.8 g/dl (32-36); Mean Corpuscular Hemoglobin 30.8 pg (26-34); Mean Corpuscular Volume 94.1 fl (80-100); Mean Platelet Volume 8.6 fl (7.4-10.4); Monocytes Absolute Auto 0.5 K/mm3 (0.1-0.6); Monocytes Percent Auto 8.8 % (2.6-8.5); Neutrophils Absolute Auto 3.4 K/mm3 (1.3-6.7); Neutrophils Percent Auto 65.4 % (45.5-73.1); Platelet Count Result 179 k/mm3 (150-375); Red Blood Count 4.41 M/mm3 (4.2-5.4); Red Cell Distribution Width 12.5 % (11.5-14.5); White Blood Count 5.1 K/mm3 (4.5-10.0)
[2023-01-16 07:58] LABS: Alanine Aminotransferase 27 U/L (6-35); Albumin Level 4.6 g/dL (3.5-5.1); Alkaline Phosphatase 80 U/L (38-126); Anion Gap 7 mmol/L (8-16); Aspartate Amino Transferase 30 U/L (14-36); Bilirubin,Total 0.5 mg/dL (0.2-1.3); Blood Urea Nitrogen 11 mg/dL (7-17); Calcium 9.7 mg/dL (8.4-10.2); Carbon Dioxide 32 mmol/L (22-30); Chloride 96 mmol/L (98-107); Estimated CRCL calculation 54 ml/min; Estimated Glomerular Filt Rate > 60; Glucose 118 mg/dL (65-110); Lipase 115 U/L (23-300); Potassium 4.2 mmol/L (3.4-5.0); Sodium 135 mmol/L (137-145)
[2023-01-16 08:05] LABS: Troponin I < 0.012 ng/mL (0.000-0.034)
[2023-01-16 08:08] LABS: Prothrombin Time 13.8 Seconds (11.1-14.7)
[2023-01-16 08:09] LABS: Partial Thromboplastin Time 31.6 SECONDS (22.3-36.8)
--- NOTE | 2023-01-16 09:14 | ED.CHESTPAIN ---
HPI - Chest Pain General Chief Complaint: Chest Pain Stated Complaint: chest pain Time Seen by Provider: 01/16/23 08:47 Source: patient, family and RN notes reviewed Mode of arrival: ambulatory Limitations: dementia History of Present Illness HPI narrative: This is a 77 year old female with history of dementia and chronic headaches who presents with her for evaluation of chest pressure. He states patient was complaining of midsternal chest pressure that radiated to her neck and both arms . He also states patient was sweating during her chest pain. Patient has dementia so she is unsure of other associated symptoms. She reports mild chest pain now. She reports headache that is severe and her husbands states these headaches have been occuring for years. She has been evaluated and she is on medication for chronic headaches. Her denies heart disease or cardiac evaluation. Related Data Home Medications Medication Instructions Recorded Confirmed aspirin 81 mg chewable tablet 81 mg PO DAILY 05/15/19 01/16/23 multivit with min-folic 1 tablet PO DAILY 05/15/19 01/16/23 acid-lutein 400 mcg-250 mcg chewable tablet (Centrum Silver) ibuprofen 200 mg tablet 400 mg PO DAILY PRN Pain 02/01/21 01/16/23 pregabalin 150 mg capsule 75 mg PO BID 07/23/22 01/16/23 docusate sodium 100 mg capsule 200 mg PO DAILY 11/15/22 01/16/23 (Stool Softener) acetaminophen 500 mg tablet See Rx Instructions .Route .COMPLEX 01/16/23 01/16/23 alprazolam 0.5 mg tablet 0.5 mg PO BID PRN Anxiety 01/16/23 01/16/23 bupropion HCl 150 mg 24 hr tablet, 150 mg PO DAILY 01/16/23 01/16/23 extended release galantamine 16 mg 24 hr 24 mg PO QAM 01/16/23 01/16/23 capsule,extended release levothyroxine 75 mcg tablet 75 mcg PO DAILY 01/16/23 01/16/23 (Euthyrox) propranolol 80 mg tablet 20 mg PO BID 01/16/23 01/16/23 Allergies Allergy/AdvReac Type Severity Reaction Status Date / Time Lobster Allergy Intermediate Nausea and Uncoded 01/16/23 09:22 Vomiting Review of Systems Constitutional: Constitutional: Denies weakness Cardiovascular: Cardiovascular: Denies syncope, Reports rapid heart rate, Denies irregular heart rhythm, Denies leg edema and Reports dyspnea Respiratory: Respiratory: Denies chest congestion, Denies hemoptysis, Denies excessive phlegm production and Denies dyspnea Gastrointestinal: Gastrointestinal: Denies abdominal pain, Denies hematochezia, Denies diarrhea and Denies vomiting Genitourinary: Genitourinary: Denies hematuria and Denies dysuria Musculoskeletal: Musculoskeletal: Denies joint swelling, Denies loss of height and Denies muscle weakness Neurologic: Denies syncope, Reports headache(s), Denies focal weakness and Denies weakness PMFSH Past Medical History Medical History Anemia Dementia early stages GERD (gastroesophageal reflux disease) Hypothyroidism Osteoporosis Positive FIT (fecal immunochemical test) Seasonal allergies Surgical History Surgical History History of bladder surgery History of section, classical X2 History of hysterectomy with bilateral oophorectomy 1997 Hx of tonsillectomy Family History Family History Mother Cancer Father Polio Heart disease Social History Social History Social History: The patient stated that she never smoked. She does not drink use marijuana or illicit drugs. She lives with her who is a durable power of employee benefits attorney for healthcare. The patient is a full code. She has 2 children. 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 One of her children as in an accident. Smoking status: Never smoker Second hand tobacco smoke exposure: No Alcohol intake: current Alcohol use details: seldom Substan
[2023-01-16] MEDS: MORPHINE SULFATE (*CRX) 2 MG/ML INJ IV PUSH (09:23)
[2023-01-16] MEDS: ONDANSETRON INJ 4 MG/2 ML VIAL IV PUSH (09:23)
[2023-01-16] MEDS: ASPIRIN 81 MG CHEWABLE TABLET 324 MG PO (10:09)
[2023-01-16 10:24] LABS: Troponin I < 0.012 ng/mL (0.000-0.034)
--- NOTE | 2023-01-16 11:14 | PC.NURSE ---
Patient report given to MATT Silva. All questions answered and care of patient transferred.
--- NOTE | 2023-01-16 12:17 | ADMGEN ---
This patient, Naya Beal, was admitted to Medical Room 347-. Patient/family oriented to hospital policies and general routines including ID bracelet, bed and alarms, visiting hours, pain management, procedures, bathroom and other care routines, personal items, smoking policy, room service/diet, and visiting hours. Information on how to activate the Rapid Response Team has been discussed. Patient/Family are encouraged to report perceived risks to care and to ask questions if they do not understand what they are told or what they should do.
--- NOTE | 2023-01-16 12:24 | PM.CNCAR ---
Assessment and Plan Assessment and plan (1) Chest pain: Qualifiers: Chest pain type: unspecified Qualified Code(s): R07.9 - Chest pain, unspecified Code(s): R07.9 - Chest pain, unspecified Status: Acute Assessment and Plan: Atypical chest pain. She has negative serial troponins and EKG shows sinus rhythm with no acute STTW changes. No evidence for ACS. Aside from age no risk factors for CAD. Check lipid panel. Will check an echo, but no ischemic workup is recommended at this time. Will follow up with echo results. History of Present Illness History of Present Illness Consult date/time: 01/16/23 12:24 Requesting physician: Kinza Martinez MD Consult reason: chest pain Reason For Visit: chest pain Narrative: Naya Beal is a 77 year old female with dementia who presents to the hospital with a chief complaint of chest pain. She states she awoke from sleep this morning around 0500 with a rolling and uncomfortable sensation in her chest that traveled up her neck and to her head. The pain has been intermittent since the first occurrence this morning. Pain will occur and last for several minutes then resolve spontaneously. Does not seem to have any aggravating or alleviating factors. She rates the pain at a 10/10 when the pain is at its worst, but at the time of my visit with her the pain is 4/10. She has never experienced this sensation in the past. She is nauseous but this does not seem to be related to the chest pain - she states her stomach has been feeling wacky. She denies any shortness of breath, palpitations, swelling, orthopnea. Review of Systems Review of Systems: All systems reviewed & are unremarkable except as noted in HPI and below Constitutional: Constitutional: Denies chills, Denies fever(s), Denies headache(s) and Denies malaise Eyes: Eyes: Denies change in vision ENT: Reports Normal hearing present, Denies dizziness, Reports headache(s) and Denies hearing loss Cardiovascular: Cardiovascular: Reports chest pain, Reports chest pain at rest, Denies chest pain with activity, Denies syncope, Denies leg edema, Denies lightheadedness, Denies palpitations, Denies dyspnea and Denies dyspnea on exertion Respiratory: Respiratory: Denies cough, Denies dyspnea, Denies dyspnea on exertion and Denies wheezing Gastrointestinal: Gastrointestinal: Reports abdominal pain, Denies constipation, Denies diarrhea and Reports nausea Genitourinary: Genitourinary: Denies hematuria and Denies dysuria Musculoskeletal: Musculoskeletal: Denies myalgias, Denies arthralgias and Denies muscle cramps Integumentary/Breasts: Skin/Breast: Denies wounds Neurologic: Reports Normal hearing present, Denies confusion, Denies dizziness, Denies syncope and Denies headache(s) Psychiatric: Psychiatric: Denies anxiety, Denies confusion and Denies depression Endocrine: Endocrine: Denies cold intolerance, Denies flushing, Denies heat intolerance and Denies palpitations Hematologic/Lymphatic: Hematologic/Lymphatic: Denies easy bleeding and Denies easy bruising Allergic/Immunologic: Allergic/Immunologic: Denies wheezing PMFSH Past Medical History Medical History Anemia Dementia early stages GERD (gastroesophageal reflux disease) Hypothyroidism Osteoporosis Positive FIT (fecal immunochemical test) Seasonal allergies Surgical History Surgical History History of bladder surgery History of section, classical X2 History of hysterectomy with bilateral oophorectomy 1997 Hx of tonsillectomy Family History Family History Mother Cancer Father Polio Heart disease Social History Social History Social History: The patient stated that she never smoked. She does not drin
[2023-01-16 15:31] LABS: Troponin I < 0.012 ng/mL (0.000-0.034)
--- NOTE | 2023-01-16 16:27 | PM.IMHP ---
H&P: HPI History of Present Illness Date/Time: 01/16/23 16:27 Chief Complaint: Chest pain Narrative: This is a 77-year-old female patient who has a history of dementia and chronic headaches. The patient came to the emergency room with complaints of chest pressure. She stated that she had midsternal chest pressure that radiated to her neck and both of her arms. She has a history of dementia and her is at the bedside answering questions for her. The patient had a green emesis bag and stated that she was nauseated early but she is no longer nauseated. The patient's stated that her memory so bad that she probably would not even remember me coming into her room. The patient has had chronic headaches and she continues to receive infusions which do not help her. The patient tells me that she has midsternal to epigastric discomfort. She also has acid reflux. Chest x-ray was read as normal chest. Sodium is 135. Chloride 96. Triglyceride 175 and cholesterol 239. EKG was read as sinus rhythm. Troponins were nonreactive x3. Cardiology has been consulted. Cardiology has evaluated the patient and concluded that this most likely is not acute coronary syndrome. The patient was given aspirin Zofran and morphine. The patient is being placed in observation status on the date of service of 01/16/2023. Review of Systems Review of Systems: All systems reviewed & are unremarkable except as noted in HPI and below Constitutional: Constitutional: Reports as per HPI and Reports no additional constitutional complaints Eyes: Eyes: Reports as per HPI and Reports no additional eye complaints ENT: Reports system reviewed and no additional complaints, except as documented and Reports Normal hearing present Cardiovascular: Cardiovascular: Reports no additional cardiovascular complaints Respiratory: Respiratory: Reports no additional respiratory complaints and Reports no additional respiratory complaints Gastrointestinal: Gastrointestinal: Reports as per HPI and Reports no additional gastrointestinal complaints Musculoskeletal: Musculoskeletal: Reports no additional musculoskeletal complaints Integumentary/Breasts: Skin/Breast: Reports system reviewed and no additional complaints, except as docu and Reports as per HPI Neurologic: Reports system reviewed and no additional complaints, except as documented, Reports as per HPI and Reports Normal hearing present Psychiatric: Psychiatric: Reports no additional psychiatric complaints and Reports as per HPI Endocrine: Endocrine: Reports no additional endocrine complaints Hematologic/Lymphatic: Hematologic/Lymphatic: Reports no additional hematologic/lymphatic complaints Allergic/Immunologic: Allergic/Immunologic: Reports no additional allergic/immunologic complaints PMFSH Past Medical History Medical History (Updated 01/17/23 @ 00:08 by Mita Robison NP) Anemia Dementia early stages Essential tremor GERD (gastroesophageal reflux disease) Hypothyroidism Osteoporosis Positive FIT (fecal immunochemical test) Seasonal allergies Surgical History Surgical History (Updated 01/17/23 @ 00:03 by Mita Robison NP) H/O dilation and curettage History of bladder surgery History of section, classical X2 History of hysterectomy with bilateral oophorectomy 1998 History of removal of pigmented skin lesion Hx of tonsillectomy Family History Family History Mother Cancer Father Polio Heart disease Social History Social History (Updated 01/16/23 @ 23:58 by Mita Robison NP) Social History: The patient stated that she never smoked. She does not drink, use marijuana or illicit drugs. She lives with her who is a durable power of [employer] for healthcare. The patient is a full code. She has 2 children. 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 One of her children as in an acci
[2023-01-16 16:28] LABS: Cholesterol 239 mg/dL (0-200); HDL Direct 48 mg/dL; Triglycerides 175 mg/dL (<150)
[2023-01-16 16:39] LABS: LDL Cholesterol Direct 153 mg/dL
[2023-01-16] MEDS: PERFLUTREN LIPID MICROSPHERES 1.5 ML VIAL DILUTED TO 10 ML TOTAL VOLUME IV PUSH (16:45)
[2023-01-17] VITALS: PULSE 82
[2023-01-17] MEDS: ALPRAZolam (*CRX) 0.5 MG TABLET PO (01:27)
[2023-01-17] MEDS: PREGABALIN (*CRX) 75 MG CAPSULE PO ×2 (01:27→10:05)
[2023-01-17] MEDS: MEMANTINE 10 MG TABLET PO ×2 (01:27→10:05)
[2023-01-17] MEDS: ONDANSETRON INJ 4 MG/2 ML VIAL IV PUSH (01:48)
[2023-01-17 04:00] VITALS: PULSE 77
[2023-01-17 05:12] VITALS: BP 125/57; PULSE 84; RESP 18; TEMP 36.9; O2SAT 93
[2023-01-17] MEDS: LEVOTHYROXINE SODIUM 75 MCG TABLET PO (06:40)
[2023-01-17 08:00] VITALS: PULSE 75; O2SAT 93
[2023-01-17 08:03] LABS: Basophils Absolute Auto 0.1 K/mm3 (0.0-0.1); Basophils Percent Auto 0.7 % (0.2-1.2); Eosinophils Percent Auto 0.6 % (0-4.4); Hematocrit 40.3 % (37.0-47.0); Hemoglobin 12.9 g/dL (12.0-15.0); Immature Granulocyte Absolute 0.02 K/mm3 (0.00-0.031); Immature Granulocyte Percent A 0.3 % (0-0.5); Lymphocytes Absolute Auto 1.39 K/mm3 (0.9-3.2); Lymphocytes Percent Auto 19.9 % (18.3-44.2); Mean Corpuscular Hemoglobin 30.5 pg (26-34); Mean Corpuscular Volume 95.3 fl (80-100); Mean Platelet Volume 8.8 fl (7.4-10.4); Monocytes Absolute Auto 0.7 K/mm3 (0.1-0.6); Monocytes Percent Auto 10.2 % (2.6-8.5); Neutrophils Absolute Auto 4.8 K/mm3 (1.3-6.7); Neutrophils Percent Auto 68.3 % (45.5-73.1); Platelet Count Result 180 k/mm3 (150-375); Red Blood Count 4.23 M/mm3 (4.2-5.4); Red Cell Distribution Width 12.7 % (11.5-14.5)
[2023-01-17 08:36] LABS: Alanine Aminotransferase 27 U/L (6-35); Albumin Level 4.4 g/dL (3.5-5.1); Alkaline Phosphatase 70 U/L (38-126); Anion Gap 5 mmol/L (8-16); Aspartate Amino Transferase 33 U/L (14-36); Bilirubin,Total 0.5 mg/dL (0.2-1.3); Blood Urea Nitrogen 16 mg/dL (7-17); Calcium 9.1 mg/dL (8.4-10.2); Carbon Dioxide 32 mmol/L (22-30); Chloride 93 mmol/L (98-107); Estimated CRCL calculation 48 ml/min; Estimated Glomerular Filt Rate > 60; Glucose 99 mg/dL (65-110); Magnesium 2.1 mg/dL (1.6-2.3); Potassium 3.8 mmol/L (3.4-5.0); Sodium 130 mmol/L (137-145)
[2023-01-17 10:05] VITALS: PULSE 60
[2023-01-17] MEDS: ASPIRIN 81 MG CHEWABLE TABLET PO (10:05)
[2023-01-17] MEDS: PANTOPRAZOLE 40 MG TABLET PO (10:05)
[2023-01-17] MEDS: buPROPion HCL XL (24 HR) 150 MG TABCR PO (10:05)
[2023-01-17] MEDS: MULTIVITAMINS /C LUTEIN (CENTRUM SILVER) TABLET *BKC 1 TAB PO (10:05)
[2023-01-17] MEDS: PROPRANOLOL HCL 20 MG TABLET PO (10:05)
[2023-01-17] MEDS: ACETAMINOPHEN 500 MG TABLET 1000 MG BY MOUTH (10:06)
--- NOTE | 2023-01-17 10:47 | PM.DS ---
DS: Admitting Diagnosis Discharge Date 01/17/2023 Admitting Diagnosis Atypical chest pain DS: Discharge Diagnosis Discharge Diagnosis (1) Diastolic dysfunction: Onset Date: 01/2023 Code(s): I51.89 - Other ill-defined heart diseases Status: Acute (2) Chest pain: Code(s): R07.9 - Chest pain, unspecified Status: Acute (3) GERD (gastroesophageal reflux disease): Code(s): K21.9 - Gastro-esophageal reflux disease without esophagitis Status: Acute DS: Summary Hospital Course Hospital Course: Naay Beal is a 77 year old female with dementia who presents to the hospital with a chief complaint of chest pain.? Troponin was negative x3. EKG unremarkable. Cardiology was consulted. They recommended to continue current management. Echo was obtained which was unremarkable except for grade 1 diastolic dysfunction. Patient is clinically stable and is being discharged home Time Spent with Patient Time attestation: Total time spent providing and/or coordinating discharge services: DS: Data Data Completed and Pending Labs on day of discharge: Labs from last 24 hours 01/17/23 01/16/23 01/16/23 07:26 15:02 14:58 WBC 7.0 RBC 4.23 Hgb 12.9 Hct 40.3 MCV 95.3 MCH 30.5 MCHC 32.0 RDW 12.7 Plt Count 180 MPV 8.8 Immature Gran % (Auto) 0.3 Neut % (Auto) 68.3 Lymph % (Auto) 19.9 [place] % (Auto) 10.2 H Eos % (Auto) 0.6 Baso % (Auto) 0.7 Lymph # (Auto) 1.39 [place] # (Auto) 0.7 H Eos # (Auto) 0.0 Baso # (Auto) 0.1 Abs Immat Gran (auto) 0.02 Absolute Neuts (auto) 4.8 Absolute Nucleated RBC 0.0 Nucleated RBC % 0.0 Sodium 130 L Potassium 3.8 Chloride 93 L Carbon Dioxide 32 H Anion Gap 5 L BUN 16 Creatinine 0.90 Estim Creat Clear Calc 48 Estimated GFR > 60 Glucose 99 Lactic Acid 1.0 Calcium 9.1 Magnesium 2.1 Total Bilirubin 0.5 AST 33 ALT 27 Alkaline Phosphatase 70 Troponin I < 0.012 Total Protein 8.0 Albumin 4.4 Triglycerides 175 H Cholesterol 239 H LDL Cholesterol Direct 153 HDL Direct 48 TSH (Reflex) 3.530 Discharge Plan Discharge Consulting providers: Marie Horton Discharging Clinician: Mark Gomez Anticipated Discharge Date/Time: 01/17/23 10:46 Patient Disposition: Home, Self-Care Activity: no preference Diet: heart healthy Patient Instructions: Antibiotic Form Stand Alone Forms: General Discharge Information Follow-up/Referrals: Chaz Pappas MD [Primary Care Provider] - Discharge Medications: Continued aspirin 81 mg Tablet,Chewable 81 mg PO DAILY Centrum Silver 400-250 mcg Tablet,Chewable 1 tablet PO DAILY pregabalin 150 mg capsule 75 mg PO BID docusate sodium [Stool Softener] 100 mg capsule 200 mg PO DAILY ibuprofen 200 mg Tablet 400 mg PO DAILY PRN (Reason: Pain) acetaminophen 500 mg Tablet See Rx Instructions .ROUTE .COMPLEX Rx Instructions: 500 mg PO 2 tablets at 10 AM, 2 tablets at 4PM, 1 tablet at HS levothyroxine [Euthyrox] 75 mcg Tablet 75 mcg PO DAILY propranolol 80 mg tablet 20 mg PO BID alprazolam 0.5 mg tablet 0.5 mg PO BID PRN (Reason: Anxiety) bupropion HCl 150 mg tablet extended release 24 hr 150 mg PO DAILY galantamine 16 mg capsule,ext rel. pellets 24 hr 24 mg PO QAM Rx Instructions: administer with breakfast memantine 10 mg tablet 10 mg PO BID Qty: 180 2RF esomeprazole magnesium 40 mg capsule,delayed release(DR/EC) 40 mg PO DAILY Qty: 90 3RF Date of admission: 01/16/23 10:03 Primary Care Provider: Chaz Pappas Admitting Provider: Soraida Gleason Attending physician on admission: Soraida Gleason Condition: Stable
== END 2023-01-17 12:17 | disposition home or self-care (01) ==
LOC: ANHED 08:47 → ANHIMU 11:37 → ANH3MED 13:03 → ANHIMU 01-17 15:36
PROVIDERS: Emergency Medicine; Nurse Practitioner; Admitting Provider Family Medicine; Emergency Provider General Practice; PCP Family Medicine Adolescent Medicine; Visit Provider Hospitalist
DX: I11.9 Hypertensive heart disease without heart failure (principal); R07.9 Chest pain, unspecified; K21.9 Gastro-esophageal reflux disease without esophagitis; F03.90 Unspecified dementia, unspecified severity, without behavioral disturbance, psychotic disturbance, mood disturbance, and anxiety; R51.9 Headache, unspecified; F41.9 Anxiety disorder, unspecified; R00.0 Tachycardia, unspecified; R06.00 Dyspnea, unspecified; G25.0 Essential tremor; K76.0 Fatty (change of) liver, not elsewhere classified; K44.9 Diaphragmatic hernia without obstruction or gangrene; D64.9 Anemia, unspecified; M81.0 Age-related osteoporosis without current pathological fracture; E03.9 Hypothyroidism, unspecified; F10.90 Alcohol use, unspecified, uncomplicated; Z79.1 Long term (current) use of non-steroidal anti-inflammatories (NSAID); Z79.82 Long term (current) use of aspirin; Z79.899 Other long term (current) drug therapy
CPT/HCPCS: 36415; 71046; 74177; 76705; 80053; 80061; 83605; 83690; 83735; 84443; 84484; 85025; 85610; 85730; 93005; 96374; 96375; 96376; 99285; A9270; C8929; G0378; J2270; J2405; Q9957; Q9967

== ENCOUNTER 2023-11-07 08:56 | Outpatient (CLI) | payer MEDICARE, SELFPAY ==
--- NOTE | ~2023-11-07 | XR_ITS ---
Lumbosacral Spine: AP and lateral views Clinical History: Pain Findings: There is 33 degrees of levoscoliosis, apex at the L3-L4 level. Probable mild compression de formity superior endplate of L3, age indeterminate. There is grade 1 retrolisthesis of L2 over L3, an d grade 1 retrolisthesis of L3 over L4. There is severe degenerative disc narrowing L2-L3 and L3-L4. There is severe facet arthropathy throughout the lumbar spine. The sacroiliac joints are normally out lined. Impression: Severe degenerative spondylosis with associated levoscoliosis and grade 1 retrolistheses of L2 over L 3 and L3 over L4. Please see details above. Probable L3 compression fracture, as noted above. Reviewed, dictated and finalized at location . Impression: Severe degenerative spondylosis with associated levoscoliosis and grade 1 retro listheses of L2 over L3 and L3 over L4. Please see details above. Probable L3 compression fracture, as noted above.
== END 2023-11-07 08:57 ==
LOC: MICIMG 08:58
PROVIDERS: PCP Family Medicine Adolescent Medicine; Visit Provider Family Medicine Adolescent Medicine
DX: M47.896 Other spondylosis, lumbar region (principal); M41.86 Other forms of scoliosis, lumbar region; M43.16 Spondylolisthesis, lumbar region
CPT/HCPCS: 72100

== ENCOUNTER 2024-08-13 10:22 | Emergency (ER) | payer MEDICARE, SELFPAY ==
--- NOTE | 2024-08-13 13:02 | ED.GENADULT ---
HPI - General Adult General Chief complaint: Extremity Problem,Nontraumatic Stated complaint: left hip pain since Friday-no injury Time Seen by Provider: 08/13/24 11:50 History of Present Illness HPI narrative: Patient has dementia and is a poor historian. This is a 79-year-old woman with dementia presenting for left hip pain. Patient developed left hip pain 2 days ago. It is a sharp pain that shoots down her leg to behind the knee. It is worse with movement. Patient says she cannot bear weight but she is standing in the room. She has had pain like this in the past is always resolved on its own. She denies any trauma. No lower extremity weakness, urinary retention, bowel incontinence, saddle anesthesia, history of IV drug abuse fevers trauma or cancer. Patient typically uses Tylenol for pain but has not taken any today. Related Data Home Medications ?Medication ?Instructions ?Recorded ?Confirmed ?Last Taken ?Type aspirin 81 mg chewable tablet 81 mg PO DAILY 05/15/19 07/05/24 01/15/23 History ekknyjhetqqm-bdpgkgp-smoyi acid 1 tablet PO DAILY 05/15/19 07/05/24 01/15/23 History 400 mcg-lutein 250 mcg chewable tablet (Centrum Silver) docusate sodium 100 mg capsule 200 mg PO DAILY 11/15/22 07/05/24 01/15/23 History (Stool Softener) acetaminophen 500 mg tablet See Rx Instructions .Route .COMPLEX 01/16/23 07/05/24 01/15/23 History sertraline 25 mg tablet 25 mg PO DAILY 07/05/24 07/05/24 Unknown History Allergies Allergy/AdvReac Type Severity Reaction Status Date / Time Lobster Allergy Intermediate Nausea and Uncoded 08/13/24 10:23 Vomiting PMFSH Past Medical History Medical History Essential tremor Positive FIT (fecal immunochemical test) Dementia early stages Osteoporosis Hypothyroidism Seasonal allergies Anemia GERD (gastroesophageal reflux disease) Surgical History Surgical History History of removal of pigmented skin lesion H/O dilation and curettage History of hysterectomy with bilateral oophorectomy 1998 History of section, classical X2 History of bladder surgery Hx of tonsillectomy Family History Family History Mother Cancer Father Polio Heart disease Social History Social History Social History: The patient stated that she never smoked. She does not drink, use marijuana or illicit drugs. She lives with her who is a durable power of insurance attorney for healthcare. The patient is a full code. She has 2 children. 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 One of her children as in an accident. Code status full code Smoking status: Never smoker Second hand tobacco smoke exposure: No Alcohol intake: current Alcohol use details: seldom Substance use: never Substance use type: does not use Lack of Transportation: No Lack of Food: Never True Current Housing: I Have Housing Concerned About Future Housing: No Difficulty Paying Gas/Electric Bills: No Difficulty Paying for Meds: No Currently Unemployed: No Education: Associate Degree Difficulty w/ Childcare or Family Care: No Living arrangements: with family Occupation/Education: retired Gender identity (if verbalized by the patient): Female Sexual Orientation (if Verbalized by the Patient): Straight or Heterosexual Spiritual care concerns: No Agree to blood products: Yes Exam Narrative: APPEARANCE: No apparent distress. Head: atraumatic. EYES: EOMI, NOSE: Atraumatic NECK/back: No midline lumbar tenderness, no tenderness to the paralumbar muscles RESPIRATORY: No increased rate of breathing CARDIOVASCULAR: RRR, +2 pulses in all extremities ABDOMINAL: Non-distended MUSCULOSKELETAl: Straight leg positive left side, negative right-sided, ankle knee and hip strength intact, patient able to ambulate with intermittent pain, compartments are soft NEURO: Alert. Moving 4/4 extremities SKIN:: Warm, dry. Normal color PSYCHIATRIC: Normal affect Course Vital Signs Vital signs: Vital Signs Temperature 98.2 F 08/13/24 13:12 Pulse Rate 71 08/13/24 13:12 Respiratory Rate 18 08/13/24 13:12 Blood Pressure 133/70 08/13/24 13:12 Pulse Oximetry 94 08/13/24 13:12 Temperature 98.2 F 08/13/24 13:12 Pulse Rate 71 08/13/24 13:12 Respiratory Rate 18 08/13/24 13:12 Blood Pressure 133/70 08/13/24 13:12 Pulse Oximetry 94 08/13/24 13:12 Medical Decision Making MDM Narrative Medical decision making narrative: -Course: 79-year-old woman presenting with lower back pain radiating down her left leg. CT of lumbar spine pelvic x-ray showed degenerative changes but no acute injuries. Patient has no red flags on history or physical. She was treated with [place] 5 mg x 2. Patient is able to ambulate although she still has some discomfort. She will be discharged follow-up with her primary care physician. -DDX includes but is not limited to: Sciatica, muscle spasm, muscle strain, spinal cord compression neoplasm Vital Signs Vital Signs: Vital Signs Temperature 98.2 F 08/13/24 13:12 Pulse Rate 71 08/13/24 13:12 Respiratory Rate 18 08/13/24 13:12 Blood Pressure 133/70 08/13/24 13:12 Pulse Oximetry 94 08/13/24 13:12 Temperature 98.2 F 08/13/24 13:12 Pulse Rate 71 08/13/24 13:12 Respiratory Rate 18 08/13/24 13:12 Blood Pressure 133/70 08/13/24 13:12 Pulse Oximetry 94 08/13/24 13:12 Discharge Plan Discharge Clinical Impression: Sciatica Patient Disposition: Home, Self-Care Condition: Stable Instructions: Antibiotic Form, Lumbar Radiculopathy (ED) Additional Instructions: You were seen in the emergency department for lower back pain. Please take tylenol for your pain. Follow-up with your primary care physician. If you develop urinary retention, bowel incontinence or lower extremity weakness, or severe pain please return to the ED for re-evaluation. Patient Language: Setswana Prescriptions: New acetaminophen 500 mg tablet 1,000 mg PO TID PRN (Reason: james) 7 Days Qty: 42 0RF No Action aspirin 81 mg Tablet,Chewable 81 mg PO DAILY Centrum Silver 400-250 mcg Tablet,Chewable 1 tablet PO DAILY docusate sodium [Stool Softener] 100 mg capsule 200 mg PO DAILY sertraline 25 mg tablet 25 mg PO DAILY acetaminophen 500 mg Tablet See Rx Instructions .ROUTE .COMPLEX Rx Instructions: 500 mg PO 2 tablets at 10 AM, 2 tablets at 4PM, 1 tablet at HS alprazolam 0.5 mg tablet 0.5 mg PO TID PRN (Reason: Anxiety) Qty: 90 3RF pregabalin 150 mg capsule 150 mg PO BID Qty: 180 2RF levothyroxine 75 mcg tablet See Rx Instructions .ROUTE .COMPLEX Qty: 90 3RF Dose Instruction: Take 1 tablet by mouth once daily Rx Instructions: Take 1 tablet by mouth once daily memantine 10 mg tablet See Rx Instructions .ROUTE .COMPLEX Qty: 180 3RF Dose Instruction: Take 1 tablet by mouth twice daily Rx Instructions: Take 1 tablet by mouth twice daily galantamine 24 mg capsule,ext rel. pellets 24 hr 24 mg PO QAM Qty: 30 5RF Rx Instructions: administer with breakfast meloxicam 15 mg tablet 15 mg PO DAILY Qty: 30 5RF quetiapine 50 mg tablet See Rx Instructions .ROUTE .COMPLEX Qty: 30 6RF Dose Instruction: TAKE 1 TABLET BY MOUTH EVERY DAY AT BEDTIME Rx Instructions: TAKE 1 TABLET BY MOUTH EVERY DAY AT BEDTIME esomeprazole magnesium 40 mg capsule,delayed release(DR/EC) See Rx Instructions .ROUTE .COMPLEX Qty: 90 0RF Dose Instruction: Take 1 capsule by mouth once daily Rx Instructions: Take 1 capsule by mouth once daily Follow-up/Referrals: Chaz Pappas MD [Primary Care Provider] -
[2024-08-13] MEDS: HYDROcodone/acetaminophen (*CRX) 5-325 MG TABLET 2 TAB PO (13:05)
[2024-08-13 13:12] VITALS: BP 133/70; PULSE 71; RESP 18; TEMP 36.8; O2SAT 94
== END 2024-08-13 13:39 | disposition home or self-care (01) ==
PROVIDERS: Emergency Provider Emergency Medicine; PCP Family Medicine Adolescent Medicine
DX: M54.32 Sciatica, left side (principal); F03.90 Unspecified dementia, unspecified severity, without behavioral disturbance, psychotic disturbance, mood disturbance, and anxiety; E03.9 Hypothyroidism, unspecified; M81.0 Age-related osteoporosis without current pathological fracture; K21.9 Gastro-esophageal reflux disease without esophagitis; Z90.710 Acquired absence of both cervix and uterus; Z90.722 Acquired absence of ovaries, bilateral
CPT/HCPCS: 72131; 72170; 99284; A9270

== ENCOUNTER 2025-03-16 08:35 | Outpatient (CLI) | payer MEDICARE, SELFPAY ==
--- NOTE | ~2025-03-16 | MR_ITS ---
EXAMINATION: MR lumbar spine wo con DATE: 03/16/2025 09:14 INDICATION: Right-sided sciatica TECHNIQUE: Magnetic resonance imaging (MRI) of the lumbar spine was performed without intravenous contrast. Sequences included sagittal T2-weighted FSE, sagittal T2-weighted FS FSE, sagittal T1-weighted FSE, and axial T2-weighted FSE. COMPARISON: CT dated 08/13/2024 and MRI dated 10/04/2016 FINDINGS: 25 degrees lumbar levoscoliosis. 3 mm retrolisthesis L2 on L3 and 2 mm retrolisthesis L3 on L4. Vertebral body heights are normal. Severe disc height loss with left-sided predominance and associated fibrofatty degenerative endplate changes at L2-L3 and L3-L4. Moderate disc height loss at T11-T12, mild left side predominant disc height loss at L1-L2, mild disc height loss at L4-L5 and moderate left-sided disc height loss at L5-S1. T1 hyperintense hemangiomas at L1, L4 and L5. Marrow signal is otherwise unremarkable. The conus medullaris terminates at L1-L2. There is normal signal in the caudal spinal cord. Paravertebral soft tissues are unremarkable. The following disc levels are specifically discussed: T11-T12: Annular fissure and left paracentral disc extrusion with disc material extending couple millimeter cranial and caudal to the level of the endplates. Moderate right-sided and severe left-sided facet osteoarthritis. Moderate left- sided neural foraminal stenosis. Mild central canal stenosis. T12-L1: The disc does not extend beyond the endplate margin. There is mild right and moderate left facet joint osteoarthritis. There is no neural foraminal stenosis. There is no central canal stenosis. L1-L2: Disc is mildly bulging, eccentric to the left. There is moderate bilateral facet joint osteoarthritis. There is mild right and mild to moderate left neural foraminal stenosis. There is mild central canal stenosis. L2-L3: Disc is bulging with annular fissure and central disc extrusion with disc material extending up to 9 mm caudal to the level of the superior endplate of L3. There is moderate left and severe right facet joint osteoarthritis. There is moderate left and severe right neural foraminal stenosis. There is moderate central canal stenosis. L3-L4: Disc is bulging. There is moderate left and severe right facet joint osteoarthritis. There is moderate left and moderate to severe right neural foraminal stenosis. There is mild central canal stenosis. L4-L5: Disc is bulging with superimposed annular fissure and small central disc extrusion with disc material extending up to 4 mm cephalad to the level of the inferior endplate of L4. There is severe bilateral facet joint osteoarthritis. There is mild left and moderate right neural foraminal stenosis. There is mild central canal stenosis. L5-S1: Disc is mildly bulging common eccentric to the left. There is severe bilateral facet joint osteoarthritis. There is mild right and moderate left neural foraminal stenosis. There is mild central canal stenosis. IMPRESSION: 1. 25 degree lumbar levoscoliosis with severe spondylosis. Reviewed, dictated and finalized at location A.
--- OUTSIDE RECORDS SUMMARY | 2025-03-16 08:47 | XMS_ITS | Clinical Summary ---
Author Organization [facility] Address [address] [place] [id number] Care Team Providers Care Patient Accounts Coordinator Name Role Phone Chaz Pappas MD Primary Care Prov ider Allergies Active Allergy Reactions Criticality Noted Date Comments Mold Sneezing Low 11/06/2015 Other Vomiting Low 12/09/2017 Lobster Pollen Extracts Sneezing Low 12/09/2017 Medications diphenhydrAMINE -acetaminophen (TYLENOL PM) 25-500 mg tablet Take 2 tablets by mouth nightly 01/30/2017 Active ALPRAZolam (XANAX) 0.5 mg tablet Take 1 tablet (0.5 mg total) by mouth daily Active cpeucuij-vbg-JR -lycopen-lutein 0.4-300-250 mg-mcg-mcg tabletIndicatio ns:Vitamin Deficiency Prevention Take 1 tablet by mouth daily Active esomeprazole DR (NexIUM) 40 mg capsule Take 1 capsule (40 mg total) by mouth daily 3 11/20/2017 Active ibuprofen (ADVIL,MOTRIN) 200 mg tab/cap Take 2 tablets by mouth 2 (two) times a day. Active levothyroxine (SYNTHROID, LEVOTHROID) 75 mcg tablet Take 1 tablet (75 mcg total) by mouth daily Active galantamine ER (RAZADYNE ER) 24 mg 24 hr capsule Take 1 capsule (24 mg total) by mouth daily 05/02/2020 Active aspirin 81 mg enteric coated tablet Take 1 tablet (81 mg total) by mouth daily Active memantine (NAMENDA) 10 mg tablet Take 1 tablet (10 mg total) by mouth 2 (two) times a day 01/12/2021 Active buPROPion XL (WELLBUTRIN XL) 150 mg 24 hr tablet Take 1 tablet (150 mg total) by mouth every morning 09/26/2021 Active acetaminophen (TYLENOL) 500 mg tablet Take 1 tablet (500 mg total) by mouth every 6 (six) hours as needed for pain Active pregabalin (LYRICA) 75 mg capsule Take 1 capsule by mouth twice daily 60 capsule 5 12/09/2022 Active propranoloL (INDERAL) 10 mg tablet Take 2 tablets by mouth twice daily 120 tablet 11 05/30/2023 Active Active Problems Problem Noted Date Diagnosed Date Intractable chronic migraine without aura 2022 Chronic tension-type headache, intractable 05/09 Assessment & Plan (01/23/2021 9:54 AM CDT): As patient was having adverse effects with nortriptyline it will be discontinued. In lieu I have given her prescription for Fioricet q.i.d. p.r.n.. Patient has been counseled that she should try to limit her Fioricet usage to no more than 1 a day of possible so as to avoid potential rebound analgesic headache. If she is able to get by without using the medication at would be referable. She will follow up in [facility] for reassessment on change of therapy in 6 months. Assessment & Plan (08/02/2020 9:49 AM SUPERINTENDENT AUTOMOTIVE): Patient has undergone sedimentation rate and C reactive protein both normal excluding arteritis as a potential etiology. Her historical description of headache is most consistent with muscle contraction headaches. Despite using nortriptyline 25 mg HS she reports an increase in headache frequency and severity and now states that the headaches are continuous. No interval changes are seen in her neurological exam. I will increase her nortriptyline to 50 mg HS in effort to reduce headache frequency and severity. I will see her back in the office in 6 months time for re- evaluation. Assessment & Plan (05/09/2020 4:11 PM [employer]PERINTENDENT [employer]OMOTIVE): Patient reports a 4 month history of continuous generalized pressure type headaches suggesting muscle contraction. She knows of no alleviating or exacerbating factors and trials of conventional analgesics medications and opiates have been unsuccessful to date. I will place her on a trial of nortriptyline 25 mg HS for headache prophylaxis and check a sedimentation rate and C reactive protein to screen for arteritis. I will see her back in the office thereafter. Neuroforaminal stenosis of lumbar spine 03/03/20 Cervical radiculopathy 02/16/2017 Lumbago 02/16/2017 Sciatica neuralgia 02/16/2017 Arthritis 02/14/2017 Other chronic pain 02/14/2017 Intermittent constipation 02/14/2017 Fatigue 02/14/2017 Hiatal hernia 02/14/2017 Memory impairment 02/14/2017 Paresis 02/14/2017 Numbness 02/14/2017 Tinnitus of left ear 02/14/2017 Tingling of skin 02/14/2017 Osteoarthritis of cervical spine 01/30/2017 Scoliosis due to degenerativ e disease of spine in adult patient 01/30/2017 Kyphosis of cervical region 01/30/2017 Osteoarthritis of lumbar spine 01/30/2017 Back pain 01/29/2017 Papilloma of breast 12/07/2015 Degeneration of lumbar or lumbosacral interverte bral disc 11/22/2010 Mass of breast 07/06/2009 Herniated lumbar intervertebral disc Surgical History Surgery Date Site/Laterality Comments LA TONSILLECTOMY PRIMARY/SECONDARY <AGE 12 Tonsillectomy - (Added by TW Conv) HYSTERECTOMY Total Hysterectomy - (Added by TW Conv) LA DELIVERY ONLY Section - (Added by TW Conv) BLADDER SURGERY Bladder Surgery - (Added by TW Conv) PARAESOPHAGEAL HERNIA REPAIR Repair Of Paraesophageal Hiatus Hernia - (Added by TW Conv) LA EXC CYST/ABERRANT BREAST TISSUE OPEN 1/> LESION Breast Surgery Lumpectomy - (Added by TW Conv) LA INJ LUMBAR/SACRAL,W/WO CNTRST Corticosteroid Injection Interlaminar Approach Lumbar - (Added by TW Conv) LA INJ LUMBAR/SACRAL,W/WO CNTRST Corticosteroid Injection Interlaminar Approach Lumbar - (Added by TW Conv) DILATION AND CURETTAGE OF UTERUS SECTION Medical History Medical History Date Comments Personal history of other me ntal and behavioral disorders History of depression - (Add ed by TW Conv) Personal history of diseases of the blood and blood-forming organs and certain disorders involving the immune mechanism History of an emia - (Added by TW Conv) Personal history of other in fectious and parasitic diseases History of rubella - (Added by TW Conv) Personal history of other in fectious and parasitic diseases History of mumps - (Added by TW Conv) Personal history of other ma lignant neoplasm of skin History of basal cell carcin saundra - (Added by TW Conv) Personal history of other sp ecified conditions History of breast lump - (Ad ded by TW Conv) Other specified postprocedural states H/O endoscopy - (Added by TW Conv) Lumbar spondylolysis Lumbar disc disease Dementia (HCC) Migraine Family History Medical History Relation Name Comments Heart failure Father Family history of congestive heart failure - (Added by TW Conv) Stroke Father Family history of cerebrovascular accident (CVA) - (Added by TW Conv) Liver cancer Mother Family history of liver cancer - (Added by TW Conv) Lung cancer Mother Family history of lung cancer - (Added by TW Conv) No Known Problems Sister 1 Car Accident Sister 2 Relation Name Status Comments Father Mother Sister 1 Alive Sister 2 Social History Tobacco Use Types Packs/Day Years Used Date Smoking Tobacco: Never Smokeless Tobacco: Never Tobacco Cessation:Counseling Given: Not Answered Alcohol Use Standard Drinks/Week Comments Yes 1 (1 standard drink = 0.6 oz pur e alcohol) every 2 months Personal Safety Answer Date Recorded Getting School Help Needed Not on file 05/29 Comments No Sex and Gender Information Value Date Recorded Sex Assigned at Not on file Legal Sex Female 8:01 AM [employer]PER[employer]ENDENT [employer] Gender Identity Not on file Sexual Orientation Not on file Obstetrics History Last Filed Vital Signs Vital Sign Reading Time Taken Comments Blood Pressure 128/69 08/06/2023 10:36 AM SUPERINTENDENT [employer]OM[employer]IVE Pulse 63 08/06/2023 10:36 AM SUPERINTENDENT [employer]OM[employer]IVE Temperature 36.9 C (98.4 F) 08/06/2023 10:36 AM [employer]PERINTENDENT [employer]OM[employer]IVE Respiratory Rate 16 04/16/2023 11:35 AM CDT Oxygen Saturation 95% 08/06/2023 10:36 AM SUPERINTENDENT [employer]OM[employer]IVE Inhaled Oxygen Concentration - - Weight 82.6 kg (182 lb) 08/06/2023 10:36 AM SUPERINTENDENT [employer]OM[employer] Height 167.6 cm (5' 6) 08/06/2023 10:36 AM SUPERINTENDENT [employer]OMOTIVE Body Mass Index 29.38 08/06/2023 10:36 AM SUPERINTENDENT AUTOMOTIVE Plan of Treatment Health Maintenance Due Date Last Done Comments Depression Screening 1945 Fall Risk Assessment 1945 Hepatitis C Screening 1945 Osteoporosis Screening-Bone Density Scan 1945 DTaP/Tdap/Td Vaccine (1 - Tdap) 1956 Hepatitis B Screening 1963 Pneumococcal vaccine 65+ (1 of 1 - PCV) 1995 Zoster Vaccine (1 of 2) 1995 Well Visit 65+ 2010 Influenza Vaccine (#1) 2025 Breast Cancer Screening-Mammogram Discontinued 10/18/2015, 10/13/2015, 09/12/2014, Additional history exists Procedures Procedure Name Priority Date/Time Associated Diagnosis Comments DIAGNOSTIC MAMMOGRAM BILATERAL W SANJAY Routine 10/18/2015 8:53 AM CDT from Last 3 Months or Most Recently Relevant to Health Maintenance Results * Diagnostic Mammogram Bilateral W Sanjay (10/18/2015 8:53 AM CDT) Anatomical Region Laterality Modality Breast Bilateral Mammography 10/18/2015 8:53 AM CDT Narrative 10/18/2015 10:12 AM CDT CORA DUBON, FINAL REPORT ACC# Date Time Exam [id number] October 18, 2015 08:53:00 [facility] [id number] Diag Mammogram Unilateral R Technologist(s): Josie Bernal; ; [id number] October 18, 2015 08:53:00 [facility] [address] DigBreast Sanjay uni R Technologist(s): Josie Bernal; ; [id number] October 18, 2015 09:42:00 [facility] [id number] Breast US unilateral, ltd R EXAMINATION: Bilateral FULL FIELD DIGITAL DIAGNOSTIC MAMMOGRAM WITH CAD AND right BREAST SONOGRAM HISTORY: Additional imaging was requested from recent screening mammogram dated 10/13/2015. MAMMOGRAM TECHNIQUE: Full field digital craniocaudal and mediolateral oblique views were obtained. Computer Aided Detection was performed with Loyalzoo.3 version 9.3. COMPARISON: Multiple prior exams dating back to 2009 BREAST PARENCHYMAL COMPOSITION: The breasts are heterogeneously dense, which may obscure small masses. MAMMOGRAM FINDINGS: In the 8:30 position of the right breast there is a lobulated oval equal density mass. A tissue marker clip is seen at the anterior aspect of the mass. This will be further evaluated with ultrasound. SONOGRAM FINDINGS: Directed sonogram of the 8:30 position of the right breast was performed. 7 cm from the nipple, there is a 1.0 x 0.6 x 1.4 cm mass. This has slightly lobulated margins. The mass is predominately solid but has some prominent cystic components. Color Doppler flow is seen at the peripheral areas of the mass. This may represent a papillary lesion. Surgical excision is recommended. This corresponds to the mammographic abnormality. IMPRESSION: 1. 1.4 cm mass in the 8:30 position of the right breast is suspicious. This may represent a papillary lesion. Recommend surgical excision. The above findings and recommendations were discussed with the patient at the conclusion of the examination . Gemini Salgado RN scheduled the patient to see Dr. dee on 11/06/2015 for consultation. OVERALL FINAL ASSESSMENT: BI-RADS Category 4B: Suspicious abnormality. Moderate suspicion for malignancy. Requested By: Dictated By: CORA DUBON on Oct 18 2015 10:12A This document has been electronically signed by: CORA DUBON on Oct 18 2015 10:12A [id number] Procedure Note Provider, MD Christian - 10/12/2016 CORA DUBON, FINAL REPORT ACC# Date Time Exam [id number] October 18, 2015 08:53:00 [facility] [id number] Diag Mammogram Unilateral R Technologist(s): Josie Bernal; ; [id number] October 18, 2015 08:53:00 [facility] [address] DigBreast Sanjay uni R Technologist(s): Josie Bernal; ; [id number] October 18, 2015 09:42:00 [facility] [id number] Breast US unilateral, ltd R EXAMINATION: Bilateral FULL FIELD DIGITAL DIAGNOSTIC MAMMOGRAM WITH CAD AND right BREAST SONOGRAM HISTORY: Additional imaging was requested from recent screening mammogram dated 10/13/2015. MAMMOGRAM TECHNIQUE: Full field digital craniocaudal and mediolateral oblique views were obtained. Computer Aided Detection was performed with R2, Cenova 1.3 version 9.3. COMPARISON: Multiple prior exams dating back to 2009 BREAST PARENCHYMAL COMPOSITION: The breasts are heterogeneously dense, which may obscure small masses. MAMMOGRAM FINDINGS: In the 8:30 position of the right breast there is a lobulated oval equal density mass. A tissue marker clip is seen at the anterior aspect of the mass. This will be further evaluated with ultrasound. SONOGRAM FINDINGS: Directed sonogram of the 8:30 position of the right breast was performed. 7 cm from the nipple, there is a 1.0 x 0.6 x 1.4 cm mass. This has slightly lobulated margins. The mass is predominately solid but has some prominent cystic components. Color Doppler flow is seen at the peripheral areas of the mass. This may represent a papillary lesion. Surgical excision is recommended. This corresponds to the mammographicabnormality. IMPRESSION: 1. 1.4 cm mass in the 8:30 position of the right breast is suspicious. This may represent a papillary lesion. Recommend surgical excision. The above findings and recommendations were discussed with the patient at the conclusion of the examination . Gemini Salgado RN scheduled the patient to see Dr. dee on 11/06/2015 for consultation. OVERALL FINAL ASSESSMENT: BI-RADS Category 4B: Suspicious abnormality. Moderate suspicion for malignancy. Requested By: Dictated By: CORA DUBON on Oct 18 2015 10:12A This document has been electronically signed by: CORA DUBON on Oct 18 2015 10:12A [id number] Historical Provider MD JONES MAMMO PROCEDURES [place] l Result from Last 3 Months or Most Recently Relevant to [place] [id number] [facility] MEDICARE ADVANTAGE [facility] MEDICARE Address: [address] [address] [place] [address] MEDICARE ADVANTAGE Care Teams Patient Accounts Coordinator Relationship Specialty Start Date End Date Chaz Pappas MD PCP - General 10/16/16
--- OUTSIDE RECORDS SUMMARY | 2025-03-16 08:47 | XMS_ITS | Patient Health Record ---
Author Organization [facility] ([address]) Address [address] [facility] [address] [place] [address] Care Team Providers Care Director Of Teenage Activities Name Role Phone Chaz Marte Primary Care Provider Unavail able Dr. Ronen Lakhani Unavailable [phone] Jill Muir Unavailable [phone] Allergies No Known Allergies Results Component Value Reference Range Notes FERRITIN Reviewed date:01/25/2025 04:01:35 PM Interpretation: Performing Lab:[facility], [address] [place], [address] Keke Muse MD Notes/Report: NON-FASTING FERRITIN 48 16-288 ng/mL VITAMIN B12 Reviewed date:01/25/2025 04:01:35 PM Interpretation: Performing Lab:[facility], [address] [place], [address] Keke Muse MD Notes/Report: NON-FASTING VITAMIN B12 9147 521-8270 pg/mL VITAMIN D, 25-OH, TOTAL, IA Reviewed date:01/25/2025 04:01:35 PM Interpretation: Performing Lab:[facility] [address] [place] [address], [address], [place], [address] Homero Gonzalez Notes/Report: NON-FASTING VITAMIN D, 25-OH, TOTAL 25.8 >29.9 ng/mL This test was developed and its analytical performance characteristics have been determined by [facility]. It has not been cleared or approved by the U.S. Food and Drug Administration. This assay has been validated pursuant to the CLIA regulations and is used for clinical purposes. Vitamin D, 25-Hydroxy reports concentrations of two common forms, 25-OHD2 and 25-OHD3. 25-OHD3 indicates both endogenous production and supplementation. 25-OHD2 is an indicator of exogenous sources, such as diet or supplementation. Therapy is based on measurement of Total 25-OHD, with levels <20 ng/mL indicative of Vitamin D deficiency, while levels between 20 ng/mL and 30 ng/mL suggest insufficiency. Optimal levels are >=30 ng/mL. Vitamin D, 25-Hydroxy reports concentrations of two common forms, 25-OHD2 and 25-OHD3. 25-OHD3 indicates both endogenous production and supplementation. 25-OHD2 is an indicator of exogenous sources, such as diet or supplementation. Therapy is based on measurement of Total 25-OHD, with levels <20 ng/mL indicative of Vitamin D deficiency, while levels between 20 ng/mL and 30 ng/mL suggest insufficiency. Optimal levels are > or = 30 ng/mL. VITAMIN D, 25-OH, D3 25.8 This test was developed and its analytical performance characteristics have been determined by [facility] [employer] [facility] [employer]. It has not been cleared or approved by the FDA. This assay has been validated pursuant to the CLIA regulations and is used for clinical purposes. VITAMIN D, 25-OH, D2 <1.0 This test was developed and its analytical performance characteristics have been determined by [facility] [employer] [facility] [employer]. It has not been cleared or approved by the FDA. This assay has been validated pursuant to the CLIA regulations and is used for clinical purposes. Reason For Referral Reason PA for botulinum tox in 200 U q12 weeks for G43.709 Diagnosis 1 Chronic migraine wit hout aura, not intractable, without status migrainosus (G43.709) Referring Provider First Name Jill Referring Provider Last Name Wood Referring Provider Speciality Neurology General Notes Beckie Skinner 02/2024 07:51:04 PM >Xeomin is not approved through the FDA for Chronic Migraines DX - Patient would only be a good canidate for Botox under this Indication for 200 Units Q12 Weeks as well Referral Priority Routine Reason Referral to discuss CPAP treatment Diagnosis 1 Obstructive sleep ap bill (adult) (pediatric) (G47.33) Diagnosis 2 Hypersomnia, unspeci fied (G47.10) Referring Provider First Name Jill Referring Provider Last Name Wood Referring Provider Speciality Neurology Referral Priority Routine Medications Medication SIG (Take, Route, Frequency, Duration) Notes Start Date End Date Status Tylenol 325 MG 1 tablet as needed Orally every 6 hrs PRN Active ARIPiprazole 5 MG 1 tablet Orally Once a day Active Centrum Silver 50+Women - as directed Orally Active Ondansetron 4 MG 1 tablet Orally twice a day; Duration: 30 days As needed 03/11/2024 Not-Taking Aspirin 81 81 MG 1 tablet Orally Once a day Active buPROPion HCl ER (XL) 150 MG 1 tablet in the morning Orally Once a day Active Ibuprofen 400 MG 1 tablet with food o r milk as needed Orally Three times a day Active Memantine HCl 10 MG 1 tablet Orally Once a day Active ALPRAZolam 0.25 MG 1/2 tablet Orally on ce per day Active Galantamine Hydrobromide ER 24 MG 1 capsule in the morning with food Orally Once a day Active Esomeprazole Sodium 40 MG as directed Intravenous Active Levothyroxine Sodium 75 MCG 1 tablet in the morning on an empty stomach Orally Once a day Active Pregabalin 75 MG 1 capsule Orally thr ee times a day 09/30/2024 Active Social History Tobacco Use: Social History Observation Description Date Details (start date - stop date) Never Smoker NA - NA Sex Assigned At : Social History Observation Description Sex Assigned At Female Tobacco Control (Standard) Question Answer Notes Tobacco use: Nonsmoker Section Notes: Non-smoker Non-smoker Non-smoker Non-smoker Non-smoker Non-smoker Non-smoker Non-smoker Problems Problem Type SNOMED Code ICD Code Onset Dates Problem Status W/U Status Risk Notes Problem Alzheimer's disease with late onset (761698395) Alzheimer's disease with late onset (G30.1) Active confirmed Problem Chronic migraine without aura, non-refractory (disorder) (428903879353294 ) Migraine without aura, not intractable, without status migrainosus (G43.009) Active confirmed Problem Migraine with aura (0308608) Migraine with aura, not intractable, without status migrainosus (G43.109) Active confirmed Problem Chronic migraine without aura, non-intractable (696206314682851 ) Chronic migraine without aura, not intractable, without status migrainosus (G43.709) Active confirmed Problem Chronic tension-type headache (186202985) Chronic tension-type headache, intractable (G44.221) Active confirmed Problem Drug induced headache (144612419253182 ) Drug-induced headache, not elsewhere classified, not intractable (G44.40) Active confirmed Problem Hypersomnia (04167862) Hypersomnia, unspecified (G47.10) Active confirmed Problem Sleep apnea (93394014) Sleep apnea, unspecified (G47.30) Active confirmed Problem Obstructive sleep apnea syndrome (disorder) (31569439) Obstructive sleep apnea (adult) (pediatric) (G47.33) Active confirmed Problem Nausea (189861459) Nausea (R11.0) Active confirmed Problem Chronic fatigue syndrome (disorder) (74383183) Chronic fatigue, unspecified (R53.82) Active confirmed Problem Muscle pain (09870894) Myalgia, unspecified site (M79.10) Active confirmed Problem Obesity (901609216) Obesity, unspecified (E66.9) Active confirmed Problem Sleep disorder (26880901) Other sleep disorders (G47.8) Active confirmed Vital Signs Temperature 98.2 degrees Fahrenheit 01/20/2025 Respiratory Rate 16 /min 01/20/2025 Oximetry 95 % 01/20/2025 Blood pressure diastolic 76 mm Hg 01/20/2025 Height 66 in 01/20/2025 Blood pressure systolic 147 mm Hg 01/20/2025 Weight 172.6 lbs 01/13/2025 BMI 27.86 kg/m2 01/13/2025 Encounters Encounter Location Date Provider Diagnosis [facility] [address] [employer] [address] [address] 12/02/2024 Jill Muir Chronic migraine without aura, not intractable, without status migrainosus G43.709 ; Drug-induced headache, not elsewhere classified, not intractable G44.40 ; Myalgia, unspecified site M79.10 ; Alzheimer's disease with late onset G30.1 and Obstructive sleep apnea (adult) (pediatric) G47.33 [facility] [address] [employer] [address] [place] [phone] 01/13/2025 Jill Muir Chronic migraine without aura, not intractable, without status migrainosus G43.709 ; Drug-induced headache, not elsewhere classified, not intractable G44.40 ; Myalgia, unspecified site M79.10 ; Alzheimer's disease with late onset G30.1 and Obstructive sleep apnea (adult) (pediatric) G47.33 [facility] [facility] [address] [place] [phone] 08/26/2024 Jill Muir Chronic migraine without aura, not intractable, without status migrainosus G43.709 ; Chronic tension-type headache, intractable G44.221 ; Drug-induced headache, not elsewhere classified, not intractable G44.40 ; Myalgia, unspecified site M79.10 ; Alzheimer's disease with late onset G30.1 and Obstructive sleep apnea (adult) (pediatric) G47.33 [facility] [address] [place] [phone] 07/29/2024 Jill Muir Chronic migraine without aura, not intractable, without status migrainosus G43.709 ; Chronic tension-type headache, intractable G44.221 ; Drug-induced headache, not elsewhere classified, not intractable G44.40 ; Myalgia, unspecified site M79.10 ; Alzheimer's disease with late onset G30.1 ; Obstructive sleep apnea (adult) (pediatric) G47.33 and Hypersomnia, unspecified G47.10 [facility] [address] [place], [place] [address] [address] [address] 05/20/2024 Jill Muir Chronic migraine without aura, not intractable, without status migrainosus G43.709 ; Chronic tension-type headache, intractable G44.221 ; Drug-induced headache, not elsewhere classified, not intractable G44.40 ; Myalgia, unspecified site M79.10 ; Alzheimer's disease with late onset G30.1 ; Obstructive sleep apnea (adult) (pediatric) G47.33 and Hypersomnia, unspecified G47.10 [facility] [address] [employer] [address] [place] [phone] 01/20/2025 Jill Muir Chronic migraine without aura, not intractable, without status migrainosus G43.709 ; Drug-induced headache, not elsewhere classified, not intractable G44.40 ; Myalgia, unspecified site M79.10 ; Alzheimer's disease with late onset G30.1 and Obstructive sleep apnea (adult) (pediatric) G47.33 [facility] [address] [employer] [address] [place] [phone] 04/12/2024 Ronen Lakhani Obstructive sleep apnea (adult) (pediatric) G47.33 ; Sleep apnea, unspecified G47.30 ; Snoring R06.83 ; Hypersomnia, unspecified G47.10 ; Other sleep disorders G47.8 and Obesity, unspecified E66.9 [facility] [address] [place] [address] 08/30/2024 Jill Muir Chronic fatigue, unspecified R53.82 [facility] [address] [place] [address] 08/11/[address] [facility] [address] [place] [address] 08/10/[address] [facility] [address] [place] [address] 07/20/2024 Jill Muir Chronic migraine without aura, not intractable, without status migrainosus G43.709 [facility] [address] [place] [address] 05/25/[address] [facility] [address] [place] [address] 05/20/2024 Jill Muir [facility] [address] [place] [phone] 05/03/[address] [facility] [address] [place] [address] 04/05/2024 Ronen Lakhani [facility] [employer] [address] [place] [phone] 11/16/2024 [facility] Lakhani [facility] [address] [place] [address] 09/30/2024 Jill Muir Myalgia, unspecified site M79.10 [facility] [address] [place] [address] 09/07/2024 Ronen Lakhani Assessments Encounter Date Diagnosis (ICD Code) Assessment Notes Treatment Notes Treatment Clinical Notes Section Notes 04/12/2024 Obstructive sleep apnea (adult) (pediatric) (ICD-10 - G47.33) Watch[facility] Sleep Study Unit was provided to the patient for tonight's planned procedure. Return tomorrow morning by 9 AM. 05/20/2024 Chronic migraine without aura, not intractable, without status migrainosus (ICD-10 - G43.709) -Abortive treatment plan: No current abortive medication. -Preventive treatment plan: Discontinue Emgality. Send PA for botulinum toxin 200 Units q 12 weeks. Continue pregabalin 75 mg tid. -Educated the patient on migraine lifestyle recommendations. I recommended the following measures: avoid known triggers of migraine, drink > 100 fluid ounces of non-caffeinated fluid daily, limit caffeine to 2 servings/day, sleep 7-8 hours/night and address any sleep concerns with us and report symptoms of snoring or fatigue; healthy management of stress; avoid treating headaches more than 2 days/week with abortive medication unless approved in treatment plan; can take Riboflavin 400 mg and Magnesium 500 mg daily as supplements; keep scheduled follow-up appointments 05/20/2024 Chronic tension-type headache, intractable (ICD-10 - G44.221) Increase fluid intake. Continue pregabalin 75 mg. 07/29/2024 Chronic migraine without aura, not intractable, without status migrainosus (ICD-10 - G43.709) -Abortive treatment plan: Discontinue rizatriptan. No current effective abortive medication at this time. -Preventive treatment plan: Started Botox injections today. Discontinued Emgality in May. Continue pregabalin.-Educa kevin the patient on migraine lifestyle recommendations. I recommended the following measures: avoid known triggers of migraine, drink > 100 fluid ounces of non-caffeinated fluid daily, limit caffeine to 2 servings/day, sleep 7-8 hours/night and address any sleep concerns with us and report symptoms of snoring or fatigue; healthy management of stress; avoid treating headaches more than 2 days/week with abortive medication unless approved in treatment plan; can take Riboflavin 400 mg and Magnesium 500 mg daily as supplements; keep scheduled follow-up appointments 07/29/2024 Chronic tension-type headache, intractable (ICD-10 - G44.221) Botox should help these symptoms. 07/20/2024 Chronic migraine without aura, not intractable, without status migrainosus (ICD-10 - G43.709) 08/26/2024 Chronic migraine without aura, not intractable, without status migrainosus (ICD-10 - G43.709) -Abortive treatment plan: Gave samples of Nurtec and Ubrelvy.-Preventi ve treatment plan: Continue Botox. Continue Qulipta. -Educated the patient on migraine lifestyle recommendations. I recommended the following measures: avoid known triggers of migraine, drink > 100 fluid ounces of non-caffeinated fluid daily, limit caffeine to 2 servings/day, sleep 7-8 hours/night and address any sleep concerns with us and report symptoms of snoring or fatigue; healthy management of stress; avoid treating headaches more than 2 days/week with abortive medication unless approved in treatment plan; can take Riboflavin 400 mg and Magnesium 500 mg daily as supplements; keep scheduled follow-up appointments 08/26/2024 Chronic tension-type headache, intractable (ICD-10 - G44.221) Botox should improve these symptoms. 08/30/2024 Chronic fatigue, unspecified (ICD-10 - R53.82) Send labs for Vitamin D, Vitamin B12, Ferritin to [facility]. 09/30/2024 Myalgia, unspecified site (ICD-10 - M79.10) 12/02/2024 Chronic migraine without aura, not intractable, without status migrainosus (ICD-10 - G43.709) -Abortive treatment plan: No current effective abortive treatment.-Preven tive treatment plan: Discontinue Qulipta. Wean off topamax 25 mg x7 days, then 25 mg qod x 7days. Continue Botox. Continue pregabalin. I had a long discussion with the patient and her about her headache symptoms. I suspect that her daily headaches may be less migrainous and related to inadequately treated TITUS. Her symptoms fluctuate in severity on some days but do not change in character. She reports a pressure in the top half of her head. She reported a headache on exam that was 8/10. There was no obvious distress or photophobia. Her said that this is her usual headache state. There is no difference in reported symptoms or visible signs of discomfort. She has not responded to preventive or abortive migraine medications. We will discontinue botulinum toxin injections if there is no improvement in three months. -Educated the patient on migraine lifestyle recommendations. I recommended the following measures: avoid known triggers of migraine, drink > 100 fluid ounces of non-caffeinated fluid daily, limit caffeine to 2 servings/day, sleep 7-8 hours/night and address any sleep concerns with us and report symptoms of snoring or fatigue; healthy management of stress; avoid treating headaches more than 2 days/week with abortive medication unless approved in treatment plan; can take Riboflavin 400 mg and Magnesium 500 mg daily as supplements; keep scheduled follow-up appointments 12/02/2024 Drug-induced headache, not elsewhere classified, not intractable (ICD-10 - G44.40) Limit use of OTC acetaminophen and ibuprofen to two days per week or less. She currently takes OTC analgesics qod per spouse. 01/13/2025 Chronic migraine without aura, not intractable, without status migrainosus (ICD-10 - G43.709) -Abortive treatment plan: No current abortive treatment.-Preven tive treatment plan: Discontinue Botox. Continue pregabalin. -Educated the patient on migraine lifestyle recommendations. I recommended the following measures: avoid known triggers of migraine, drink > 100 fluid ounces of non-caffeinated fluid daily, limit caffeine to 2 servings/day, sleep 7-8 hours/night and address any sleep concerns with us and report symptoms of snoring or fatigue; healthy management of stress; avoid treating headaches more than 2 days/week with abortive medication unless approved in treatment plan; can take Riboflavin 400 mg and Magnesium 500 mg daily as supplements; keep scheduled follow-up appointments 01/13/2025 Drug-induced headache, not elsewhere classified, not intractable (ICD-10 - G44.40) Limit use of OTC acetaminophen to 2 days per week or less. Educated patient regarding medication overuse headaches. Advised to avoid taking NSAIDs or acetaminophen > 15 days/month, triptans or DHE > 10 days/month, butalbital > 10 days/month to avoid rebound headaches. 01/20/2025 Chronic migraine without aura, not intractable, without status migrainosus (ICD-10 - G43.709) -Preventive treatment plan: She has not found an effective preventive or abortive treatment. Continue pregabalin. -Educated the patient on migraine lifestyle recommendations. I recommended the following measures: avoid known triggers of migraine, drink > 100 fluid ounces of non-caffeinated fluid daily, limit caffeine to 2 servings/day, sleep 7-8 hours/night and address any sleep concerns with us and report symptoms of snoring or fatigue; healthy management of stress; avoid treating headaches more than 2 days/week with abortive medication unless approved in treatment plan; can take Riboflavin 400 mg and Magnesium 500 mg daily as supplements; keep scheduled follow-up appointments 01/20/2025 Drug-induced headache, not elsewhere classified, not intractable (ICD-10 - G44.40) Limit use of OTC acetaminophen to 2 days per week or less. Educated patient regarding medication overuse headaches. Advised to avoid taking NSAIDs or acetaminophen > 15 days/month, triptans or DHE > 10 days/month, butalbital > 10 days/month to avoid rebound headaches. 01/20/2025 Myalgia, unspecified site (ICD-10 - M79.10) Assess effect of left occipital nerve block today. Trigger point injections were not performed due to the patient's lack of response following the ONB. 01/13/2025 Myalgia, unspecified site (ICD-10 - M79.10) Return to clinic in one week for occipital nerve blocks and trigger point injections. 12/02/2024 Myalgia, unspecified site (ICD-10 - M79.10) Continue pregabalin. 08/26/2024 Drug-induced headache, not elsewhere classified, not intractable (ICD-10 - G44.40) Limit use of acetaminophen to two days per week or less. Counseled patient and spouse on risk of medication overuse headache with daily doses of acetaminophen. 07/29/2024 Drug-induced headache, not elsewhere classified, not intractable (ICD-10 - G44.40) Limit use of OTC analgesics to 2 days per week or less. Educated patient regarding medication overuse headaches. Advised to avoid taking NSAIDs or acetaminophen > 15 days/month, triptans or DHE > 10 days/month, butalbital > 10 days/month to avoid rebound headaches. 05/20/2024 Drug-induced headache, not elsewhere classified, not intractable (ICD-10 - G44.40) Limit use of OTC analgesics to 2 days per week or less. Educated patient regarding medication overuse headaches. Advised to avoid taking NSAIDs or acetaminophen > 15 days/month, triptans or DHE > 10 days/month, butalbital > 10 days/month to avoid rebound headaches. 04/12/2024 Sleep apnea, unspecified (ICD-10 - G47.30) 04/12/2024 Snoring (ICD-10 - R06.83) 05/20/2024 Myalgia, unspecified site (ICD-10 - M79.10) Monitor. Continue HEP. 07/29/2024 Myalgia, unspecified site (ICD-10 - M79.10) Botox should help with these symptoms. 12/02/2024 Alzheimer's disease with late onset (ICD-10 - G30.1) 08/26/2024 Myalgia, unspecified site (ICD-10 - M79.10) Continue pregabalin. 01/13/2025 Alzheimer's disease with late onset (ICD-10 - G30.1) Monitor. 01/20/2025 Alzheimer's disease with late onset (ICD-10 - G30.1) Monitor. Follow up with Dr. Lakhani at [facility]. 01/13/2025 Obstructive sleep apnea (adult) (pediatric) (ICD-10 - G47.33) Discussed the importance of treating TITUS and a referral to sleep medicine to discuss options. She tried/failed a mouth guard earlier this year. 12/02/2024 Obstructive sleep apnea (adult) (pediatric) (ICD-10 - G47.33) 01/20/2025 Obstructive sleep apnea (adult) (pediatric) (ICD-10 - G47.33) Again discussed the importance of treating TITUS and a referral to sleep medicine to discuss all options. 08/26/2024 Alzheimer's disease with late onset (ICD-10 - G30.1) Monitor. 07/29/2024 Alzheimer's disease with late onset (ICD-10 - G30.1) Monitor. 04/12/2024 Hypersomnia, unspecified (ICD-10 - G47.10) 05/20/2024 Alzheimer's disease with late onset (ICD-10 - G30.1) 04/12/2024 Other sleep disorders (ICD-10 - G47.8) 05/20/2024 Obstructive sleep apnea (adult) (pediatric) (ICD-10 - G47.33) Send referral to [facility] for CPAP treatment. Discussed with patient that untreated TITUS is likely contributing to her headaches. 07/29/2024 Obstructive sleep apnea (adult) (pediatric) (ICD-10 - G47.33) Start treatment with mouthguard. Patient was unable to tolerate CPAP. 08/26/2024 Obstructive sleep apnea (adult) (pediatric) (ICD-10 - G47.33) Use mouthguard device for TITUS as CPAP was not tolerated. 05/20/2024 Hypersomnia, unspecified (ICD-10 - G47.10) Send referral to [facility] for CPAP treatment. Discussed with patient that untreated TITUS is likely contributing to her headaches. 07/29/2024 Hypersomnia, unspecified (ICD-10 - G47.10) Start treatment with mouthguard. Patient was unable to tolerate CPAP. 04/12/2024 Obesity, unspecified (ICD-10 - E66.9) Plan Of Treatment Pending Test Test Name Order Date Sleep Study WatchPAT 300 ([facility]) 0 03/11/2024 Insurance Providers Payer Name Payer Address Payer Phone Subscriber Number Group Number Insured Name Patient Relationship to Insured Coverage Start Date Coverage End Date [employer] Medicare [address] [address] [place] [address] [id number] Naya Beal Self - patient is the insured 4 Medical (General) History Medical History History ICD Code Hypothyroidism GERD Alzheimer's dementia Depression Chronic migraine Surgical History Surgery Date(Month/Year) Hysterectomy
--- OUTSIDE RECORDS SUMMARY | 2025-03-16 08:47 | XMS_ITS | Clinical Summary ---
Author Organization [facility] Address [address] [place] [address] Care Team Providers Care Hot Dipper Name Role Phone Chaz Pappas MD Primary Care Provider + Source Comments [facility] [employer],non-owned Affiliates and Associated Physician Practices is amultiple site organization consisting of ambulatory clinics and hospital sitesin [place], [place], [place] and [place]. This disclosure is being madepursuant to the Care Everywhere program and may not contain all information available regarding this patient. Last updated 18.[facility] Allergies No known active allergies Medications * Be aware that medications may not be up to date on this document. Alwaysverify current medications with the patient. 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 Gender Identity Not on file Sexual Orientation Not on file Plan of Treatment Health Maintenance Due Date Last Done Comments BONE DENSITY TESTING 1945 DTAP/TDAP/TD VACCINES (1 - Tdap) 1964 PNEUMOCOCCAL VACCINE 50+ (1 of 1 - PCV) 1995 ZOSTER VACCINE (1 of 2) 1995 Respiratory Syncytial Virus (RSV) Vaccine Pt: or over 60 yrs (1 - 1-dose 75+ series) 2020 DEPRESSION SCREENING 06/16/2024 COVID-19 VACCINE (1 - 2023-2 5 season) 2025 INFLUENZA VACCINE (#1) 2025 HEPATITIS B VACCINE Aged Out No longe r eligible based on patient's age to complete this topic HIB VACCINE Aged Out No longer eligi ble based on patient's age to complete this topic HPV VACCINE Aged Out No longer eligi ble based on patient's age to complete this topic MENINGOCOCCAL (Group B) VACC INE SHARED DECISION-MAKING Aged Out No longer eligibl e based on patient's age to complete this topic MENINGOCOCCAL GROUPS A/C/Y/W VACCINE Aged Out No longer eligible b ased on patient's age to complete this topic Insurance MANAGED MEDICARE ADV Care Teams Hot Dipper Relationship Specialty Start Date End Date Chaz Pappas MD [address] [place] [address] PCP - General 01/20/19
--- OUTSIDE RECORDS SUMMARY | 2025-03-16 08:47 | XMS_ITS | Clinical Summary ---
Author Organization [facility] Care Team Providers Care Director Trial Name Role Phone Unavailable Primary Care Provider Unavailabl e Social History Tobacco Use Types Packs/Day Years Used Date Smoking Tobacco: Never Assessed Comments Unknown Sex and Gender Information Value Date Recorded Sex Assigned at Not on file Legal Sex Female 11:11 PM CDT Gender Identity Not on file Sexual Orientation Not on file Plan of Treatment Health Maintenance Due Date Last Done Comments Hepatitis C Virus (HCV) Screening 1945 TdaP Immunization 1945 Pneumococcal Immunization (5 0+ years) (1 of 1 - PCV) 1995 Zoster Immunization (1 of 2) 1995 Respiratory Syncytial Virus (RSV) Immunization (Adult) (1 - 1-dose 75+ series) 2020 Influenza Immunization (#1) 2025 SARS-COV-2 Immunization ( - season) 2025 09/03/2020, 08/13/2020 Hepatitis B Immunization Aged Out No longer eligible based on patient's age to complete this topic Human Papillomavirus (HPV) Immunization Aged Out No longer eligible b ased on patient's age to complete this topic Meningococcal Immunization (ACWY) Aged Out No longer eligible b ased on patient's age to complete this topic Rotavirus Immunization Aged Out No lo nger eligible based on patient's age to complete this topic
--- OUTSIDE RECORDS SUMMARY | 2025-03-16 08:47 | XMS_ITS | Encounter Summary ---
Author Organization [facility] Address [address] [place] [address] Care Team Providers Care Production Graphic Designer Name Role Phone Chaz Pappas MD Primary Care Provider + Encounter Details Date Type Department Care Team (Late st Contact Info) Description 01/21/[address] 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 Received: 01/21/2019 06:25 AM Pathologist: Tete Castro MD Specimens: A) - Skin, left chest B) - Skin, mid chest C) - Skin, right posterior hairline 9 9:28 AM CDT DERMATOPATHOLOGY LABORATORY Final Diagnosis Specimen A. SKIN, left chest: BENIGN VERRUCOUS KERATOSIS (L82.1) Specimen B. SKIN, mid chest: BENIGN VERRUCOUS KERATOSIS, INFLAMED (L82.1) Specimen C. SKIN, right posterior hairline: PRURIGO NODULARIS, ERODED AND IMPETIGINIZED, SUPERFICIAL PORTIONS OF (L28.1) (see microscopic description and comment) 9:28 AM [facility] DERMATOPATHOLOGY LABORATORY at [address] [facility] Clinical History A: R/O BCC. B: ISK vs MM vs pigmented BCC. C: R/O BCC. 9:28 AM [facility] DERMATOPATHOLOGY LABORATORY Gross Description Specimen A: Received is one formalin filled container labeled with the patient's name and designated left chest. The specimen consists of a shave measuring [id number]. Jar 0. Specimen B: Received is one formalin filled container labeled with the patient's name and designated mid chest. The specimen consists of a shave measuring [id number]. Jar 0. Specimen C: Received is one formalin filled container labeled with the patient's name and designated right posterior hairline. The specimen consists of a shave (2 pieces) measuring [id number] & [id number]. Jar 0. 9:28 AM [facility] DERMATOPATHOLOGY LABORATORY Microscopic Description Specimen A. SKIN, left chest: Sections show hyperkeratosis, papillomatosis, hypergranulosis, and acanthosis. These histological findings can be seen in a verruca vulgaris or a seborrheic keratosis. Specimen B. SKIN, mid chest: Sections show hyperkeratosis, papillomatosis, hypergranulosis, and acanthosis. Inflammatory cells are present within the dermis. These histological findings can be seen in a verruca vulgaris or a seborrheic keratosis. Specimen C. SKIN, right posterior hairline: Sections show a superficial biopsy specimen with portions of epidermis and focal underlying dermis. There is psoriasiform epidermal hyperplasia and compact hyperkeratosis. Visualized portions of superficial dermis appear fibrotic. A focal erosion is present. There is diffuse overlying inflamed serum crust containing numerous bacteria. Additional deeper sections were obtained and reviewed. COMMENT: Due to the superficial nature of the biopsy specimen a deeper dermal process cannot be entirely excluded. 9 9:28 AM CDT DERMATOPATHOLOGY LABORATORY Disclaimer An external and internal positive and negative controls are appropriate for the histochemical, immunohistochemical and immunofluorescence stain(s) in this case (if any), except where stated explicitly. The performance characteristics of the stain(s) cited in this report were developed and its performance characteristic determined by the Dermatopathology Laboratory at [facility], directed by Dr. Elbert Fuchs. These tests need not be, and therefore are not, approved by the [place] Food and Drug Administration. The tests are used for clinical purposes. Billing Codes Specimen Charges Stain Charges 92031 [id number] [id number] 1 1 1 9 9:28 AM CDT DERMATOPATHOLOGY LABORATORY Embedded Images 9:28 AM CDT DERMATOPATHOLOGY LABORATORY Pathology/Cytology TISSUE SPECIMEN FROM SKIN / Unknown 01/20/2019 01/21/2019 6:25 AM CDT Miscellaneous samples (specimen) TISSUE SPECIMEN FROM SKIN / Unknown 01/20/2019 01/21/2019 6:25 AM CDT Miscellaneous samples (specimen) TISSUE SPECIMEN FROM SKIN / Unknown 01/20/2019 01/21/2019 6:25 AM CDT us Concepcion Young DO LAB - PATHOLOGY/CYTOLOGY ORDERABLES Final Result DERMATOPATHOLOGY LABORATORY [facility] - Department of Dermatology [address] [place] [address], 5th Floor Lab [address] [phone] documented in this encounter Visit Diagnoses Not on filedocumented in this encounter Care Teams Production Graphic Designer Relationship Specialty Start Date End Date Chaz Pappas MD [address] [facility] [address] [place] [address] PCP - General 01/20/19 documented as of this encounter
--- OUTSIDE RECORDS SUMMARY | 2025-03-16 08:48 | XMS_ITS | Patient Health Record ---
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 excessive sleepiness, worsening confusion, and intermittent hallucinations. The patient's aripiprazole dosage was recently increased to 10mg, which has improved her hallucinations. However, she continues to experience excessive daytime sleepiness, sleeping 11-12 hours at night and napping during the day. The patient also reports realistic dreams 2-3 times a week, leading to confusion upon waking which appears to be sun downer's. Differential diagnoses include medication side effects, as well as potential progression of an underlying neurocognitive disorder. The timing of aripiprazole administration was discussed, with a decision to switch it from morning to nighttime dosing to potentially mitigate daytime drowsiness. The alprazolam dosage has already been reduced to 0.25mg, suggesting an attempt to minimize sedating medications. The patient is also taking memory medications (galatamine and memantine) prescribed by another physician, indicating ongoing management of cognitive issues. The persistence of symptoms despite medication adjustments suggests a complex interplay between psychiatric symptoms, medication effects, and possible cognitive decline. 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 1 Obstructive sleep apnea (adult) (pediatr ic) G47.33 Chronic fatigue, unspecified R53.82
== END 2025-03-16 08:36 | disposition home or self-care (01) ==
PROVIDERS: PCP Family Medicine Adolescent Medicine; Visit Provider Family Medicine Adolescent Medicine
DX: M54.31 Sciatica, right side (principal); M47.896 Other spondylosis, lumbar region
CPT/HCPCS: 72148